=== PATIENT | female | born 1955 | race Caucasian/White ===

== ENCOUNTER 2017-07-06 05:25 | Inpatient (IN) | payer OTHER, SELFPAY ==
[2017-06-23 08:10] VITALS: BP 164/93; PULSE 76; RESP 16; TEMP 37.5; O2SAT 94; BMI 30.2
[2017-06-23 09:07] LABS: Hematocrit 44.6 % (37-47); Hemoglobin 14.5 g/dl (12.0-15.0); Mean Corp Hgb Conc 32.5 g/gl (32-36); Mean Corpuscular Hgb 31.1 pg (27.0-32.0); Mean Corpuscular Volume 95.7 fL (81-99); Mean Platelet Vol. 10.7 fl (6.2-12.0); Platelet Count 209 K/mm3 (150-450); RBC Distribution Width CV 12.7 % (11.6-14.6); RBC Distribution Width SD 43.4 fl (35.1-43.9); Red Blood Count 4.66 M/mm3 (4.2-5.4); White Blood Count 4.9 K/mm3 (4.4-11.0)
[2017-06-23 09:08] LABS: Scan Indicated on CBC? Y/N NO
[2017-06-23 09:27] LABS: Anion Gap 5 (5-15); BUN 15 mg/dL (7-18); BUN/Creat Ratio 27.7 RATIO (10-20); Calcium,Total 8.8 mg/dL (8.5-10.1); Chloride 108 mmol/L (98-107); Creatinine, Serum 0.54 mg/dL (0.55-1.02); EST Glomerular Filtration Rate 122 mL/min (>60); Est Glom Filt Rate - Afr Amer 148 mL/min (>60); Estimated Creatinine Clearance 88.72 ml/min; Glucose 95 mg/dL (70-110); Potassium 4.1 mmol/L (3.5-5.1); Sodium Level 142 mmol/L (136-145)
--- NOTE | 2017-07-02 13:40 | CASEMGMT ---
Addendum entered by Terra Paniagua 07/02/17 13:44: Patient returned call. SOULEYMANE ANGUIANO spoke with patient regarding discharge needs after upcoming surgery. Patient states that she has a cane and raised toilet seat and would need a walker. Patient states she has no preference for [employer] and is agreeable to use [employer]. Patient states that she is setup with [facility] for outpatient therapy and that her boyfriend will be providing transportation. SOULEYMANE ANGUIANO will follow up with patient after surgery and will assist with discharge needs. Disposition Plan: Home with outpatient therapy. SOULEYMANE ANGUIANO to assist with obtaining walker. Original Note: SOULEYMANE ANGUIANO called to discuss discharge needs after patient's upcoming surgery. No answer, voicemail left requesting call back with contact information left. SOULEYMANE ANGUIANO will follow-up after surgery to discuss discharge needs.
[2017-07-06] VITALS (14 sets, daily range): BP systolic 98–151; BP diastolic 58–83; PULSE 59–79; RESP 16–18; TEMP 35.9–36.7; O2SAT 93–100; BMI 30.2
[2017-07-06] MEDS: Celecoxib 200 MG Capsule 400 MG PO (05:55)
[2017-07-06] MEDS: Acetaminophen 500 MG Tablet 1000 MG PO ×2 (05:55→21:43)
[2017-07-06] MEDS: oxyCODONE HCl Cr 10 MG Tablet PO (05:56)
[2017-07-06] MEDS: Lactated Ringers 1,000 ML 999 ML IV (06:40)
--- NOTE | 2017-07-06 07:24 | PCM.OPRPT ---
Report of Operation Date of Procedure: 07/06/17 Pre-Operative Diagnosis: severe end stage osteoarthritis right knee. osteoarthritis left knee Post-Operative Diagnosis: Severe end-stage osteoarthritis right knee. Osteoarthritis left knee Surgery/Procedure Performed:: 1: Total knee arthroplasty right knee. 2: Intra-articular cortisone injection left knee Description of Surgical Findings:: Varus alignment, eburnation of bone, periarticular osteophytes consistent with tricompartmental osteoarthritis natural resources instructor: Tobi Silva Type of Anesthesia:: Spinal Anesthesiologist: Gage Woods Special Medications: TXA Specimen's removed: bone and soft tissue Estimated Blood Loss (mL): 100 Fluids Replaced: see anesthesia report Description of Procedure: Implants: Cathie triathlon size 2 CR femur, size 2 tibia, 32 x 9 mm patella all cemented with Simplex. 9 mm CR articulating surface Indications: Patient has severe end-stage osteoarthritis diagnosed via x-rays in the knee. They have failed all forms of conservative measures including activity modification, injections, anti-inflammatories, use of assistive device. The patient has pain that affects on a daily basis and prevents him from doing things that they enjoyed. They have elected to undergo the above procedure. The risks of the procedure were discussed at length and their questions were answered. Procedure description: The patient was greeted in the preoperative area. The right knee was then marked with a surgical marker. Patient was then taken to or Suite 2. They were administered a dose of antibiotics as well as tranexamic acid. Once adequate anesthesia was obtained and airway was secured to placed in supine position on the operating room table. A well-padded tourniquet was placed on the affected extremity. Leg was then prepped and draped in the usual sterile fashion from the knee down. Ioban was used on the skin. Surgical timeout was then performed and confirmed with all present. Six-inch Esmarch was used to examine the limb and tourniquet was then inflated to 250 mmHg. A longitudinal incision was then planned and carried out in the anterior aspect of the knee. The dissection was then carried the length of the incision the extensor mechanism was identified. Standard medial parapatellar arthrotomy was then performed revealing severe eburnation of bone and periarticular osteophytes. There is complete loss of cartilage especially in the medial compartment with varus alignment. Anterior fat pad was removed for visualization purposes and the anterior medial aspect of the tibia was skeletonized for exposure to the knee. The knee was then flexed the patella was inverted. Opening reamer was then used in the femur approximately 1 cm anterior to the attachment of the PCL. The intramedullary valgus wand was then placed in the femur set at 5? of valgus. The distal femoral cutting jig was then applied to the femur with anticipated resection of approximately 8 mm. This was then made with a oscillating saw. The sizing guide was then placed referencing off the posterior condyles and also reference off the epicondylar axis. This was measured and the appropriate size 4-in-1 cutting jig was then applied to the distal femur. Anterior posterior cuts were made followed by the anterior and posterior chamfer cuts. These bony pieces and fragments were removed and placed on the back table. Posterior retractor was then utilized and the tibia was subluxed anteriorly. Intramedullary tibial alignment jig was then applied to the tibia referencing off the medial one third of the tibial tubercle the anterior tibial spine the middle aspect of the tibiotalar joint. Also reference off patient's [place] slope. The tibial cutting jig was then pinned with anticipated resection of 2 mm off of the deficient medial tibial condyle. This cut was made with the oscillating saw. Once this was complete a laminar senior design engineering specialist was utilized in both medial lateral meniscus were removed and a posterior capsular osteophytes were also removed. Posterior capsule release was performed in the posterior capsule as well as the geniculate arteries are treated with the aqua Rajinder. The tibia was incised and the appropriate sized tibial tray was then pinned. The femoral trial was then placed and the knee was trialed. Full flexion-extension were easily achieved. The knee seemed to balance quite nicely. Any remaining osteophytes were removed at this time. Once this was complete the patella was everted and the Shae patella reaming device was then utilized the patella was then placed in the appropriate jig and reamer was then used to remove approximately 9 mm of the undersurface of the patella. A soft tissue remaining was in the way was removed and patella trial was then placed listed maintain excellent tracking using the no thumbs technique. The tibial tray at this point was punched to accommodate the fins of the final implant. At this point cement was mixed on the back table. The trial components were removed and the knee was copiously irrigated. Did use a cocktail of injection for postoperative pain control. The final components were then cemented in the standard fashion and excess cement was removed with cement removal tools and patellar clamp is placed in the patella. As the cement had cured in full extension tourniquet was deflated and hemostasis was perfect with Bovie cautery as well as the aqua Manus. Needle is once again trialed with different size polyethylenes to ensure the full range of motion was achieved as well as excellent balancing ligamentously was achieved. At this point the knee was copious irrigation. Final implant was then inserted locking mechanism was engaged and confirmed to be locked. The arthrotomy was then closed with #1 Vicryl aggravate type fashion interrupted. Subcutaneous tissue was closed with 0 Vicryl and surgical ray were placed in the skin. A occlusive silver impregnated dressing was then applied followed by well-padded sterile dressing secured with an Jeffrey wrap. The patient was taken to the PACU in stable condition. No complications known at this time. Postoperatively we will maintain standard total knee postoperative protocol. The use of the physician health information assistant was integral during this procedure. They assisted with positioning placement of the tourniquet retracting closure and placement of the dressing. The procedure would have been much more difficult without their expertise and assistance The patient's left knee was cleansed with alcohol preparation solution. A 25-gauge needle was then used to inject combination of 4 mL of 0.5% Marcaine with 40 mg of Kenalog using an anterior medial approach. A bandage was placed. Patient tolerated the procedure well. - Complications None known - Admit VTE Documentation VTE Present on Admission: Yes VTE Mechan Device Prophylaxis: SCD's, Thigh High ED Hose VTE Pharm Prophylaxis ordered?: Yes
[2017-07-06] MEDS: Cefazolin 2 GM in 0.9% Normal Saline 100 ML IV (07:25)
--- NOTE | 2017-07-06 07:27 | OP.PCM_ITS ---
Report of Operation Date of Procedure: 07/06/17 Pre-Operative Diagnosis: severe end stage osteoarthritis right knee. osteoarthritis left knee Post-Operative Diagnosis: Severe end-stage osteoarthritis right knee. Osteoarthritis left knee Surgery/Procedure Performed:: 1: Total knee arthroplasty right knee. 2: Intra- articular cortisone injection left knee Description of Surgical Findings:: Varus alignment, eburnation of bone, periarticular osteophytes consistent with tricompartmental osteoarthritis leaf size picker: Tobi Silva Type of Anesthesia:: Spinal Anesthesiologist: Gage Woods Special Medications: TXA Specimen's removed: bone and soft tissue Estimated Blood Loss (mL): 100 Fluids Replaced: see anesthesia report Description of Procedure: Implants: Cathie triathlon size 2 CR femur, size 2 tibia, 32 x 9 mm patella all cemented with Simplex. 9 mm CR articulating surface Indications: Patient has severe end-stage osteoarthritis diagnosed via x-rays in the knee. They have failed all forms of conservative measures including activity modification, injections, anti-inflammatories, use of assistive device. The patient has pain that affects on a daily basis and prevents him from doing things that they enjoyed. They have elected to undergo the above procedure. The risks of the procedure were discussed at length and their questions were answered. Procedure description: The patient was greeted in the preoperative area. The right knee was then marked with a surgical marker. Patient was then taken to or Suite 2. They were administered a dose of antibiotics as well as tranexamic acid. Once adequate anesthesia was obtained and airway was secured to placed in supine position on the operating room table. A well-padded tourniquet was placed on the affected extremity. Leg was then prepped and draped in the usual sterile fashion from the knee down. Ioban was used on the skin. Surgical timeout was then performed and confirmed with all present. Six-inch Esmarch was used to examine the limb and tourniquet was then inflated to 250 mmHg. A longitudinal incision was then planned and carried out in the anterior aspect of the knee. The dissection was then carried the length of the incision the extensor mechanism was identified. Standard medial parapatellar arthrotomy was then performed revealing severe eburnation of bone and periarticular osteophytes. There is complete loss of cartilage especially in the medial compartment with varus alignment. Anterior fat pad was removed for visualization purposes and the anterior medial aspect of the tibia was skeletonized for exposure to the knee. The knee was then flexed the patella was inverted. Opening reamer was then used in the femur approximately 1 cm anterior to the attachment of the PCL. The intramedullary valgus wand was then placed in the femur set at 5? of valgus. The distal femoral cutting jig was then applied to the femur with anticipated resection of approximately 8 mm. This was then made with a oscillating saw. The sizing guide was then placed referencing off the posterior condyles and also reference off the epicondylar axis. This was measured and the appropriate size 4-in-1 cutting jig was then applied to the distal femur. Anterior posterior cuts were made followed by the anterior and posterior chamfer cuts. These bony pieces and fragments were removed and placed on the back table. Posterior retractor was then utilized and the tibia was subluxed anteriorly. Intramedullary tibial alignment jig was then applied to the tibia referencing off the medial one third of the tibial tubercle the anterior tibial spine the middle aspect of the tibiotalar joint. Also reference off patient's nikolai slope. The tibial cutting jig was then pinned with anticipated resection of 2 mm off of the deficient medial tibial condyle. This cut was made with the oscillating saw. Once this was complete a laminar test car driver was utilized in both medial lateral meniscus were removed and a posterior capsular osteophytes were also removed. Posterior capsule release was performed in the posterior capsule as well as the geniculate arteries are treated with the aqua Rajinder. The tibia was incised and the appropriate sized tibial tray was then pinned. The femoral trial was then placed and the knee was trialed. Full flexion-extension were easily achieved. The knee seemed to balance quite nicely. Any remaining osteophytes were removed at this time. Once this was complete the patella was everted and the Shae patella reaming device was then utilized the patella was then placed in the appropriate jig and reamer was then used to remove approximately 9 mm of the undersurface of the patella. A soft tissue remaining was in the way was removed and patella trial was then placed listed maintain excellent tracking using the no thumbs technique. The tibial tray at this point was punched to accommodate the fins of the final implant. At this point cement was mixed on the back table. The trial components were removed and the knee was copiously irrigated. Did use a cocktail of injection for postoperative pain control. The final components were then cemented in the standard fashion and excess cement was removed with cement removal tools and patellar clamp is placed in the patella. As the cement had cured in full extension tourniquet was deflated and hemostasis was perfect with Bovie cautery as well as the aqua Manus. Needle is once again trialed with different size polyethylenes to ensure the full range of motion was achieved as well as excellent balancing ligamentously was achieved. At this point the knee was copious irrigation. Final implant was then inserted locking mechanism was engaged and confirmed to be locked. The arthrotomy was then closed with #1 Vicryl aggravate type fashion interrupted. Subcutaneous tissue was closed with 0 Vicryl and surgical ray were placed in the skin. A occlusive silver impregnated dressing was then applied followed by well-padded sterile dressing secured with an Jeffrey wrap. The patient was taken to the PACU in stable condition. No complications known at this time. Postoperatively we will maintain standard total knee postoperative protocol. The use of the physician ophthalmic surgical assistant was integral during this procedure. They assisted with positioning placement of the tourniquet retracting closure and placement of the dressing. The procedure would have been much more difficult without their expertise and assistance The patient's left knee was cleansed with alcohol preparation solution. A 25- gauge needle was then used to inject combination of 4 mL of 0.5% Marcaine with 40 mg of Kenalog using an anterior medial approach. A bandage was placed. Patient tolerated the procedure well. - Complications None known - Admit VTE Documentation VTE Present on Admission: Yes VTE Mechan Device Prophylaxis: SCD's, Thigh High ED Hose VTE Pharm Prophylaxis ordered?: Yes
[2017-07-06] MEDS: Triamcinolone Acetonide 40 MG/ML Vial (07:34)
[2017-07-06] MEDS: Bupivacaine Mpf 0.5% 30 ML VIAL (07:34)
--- NOTE | 2017-07-06 08:40 | RAD_ITS ---
STUDY: X-RAY - RIGHT KNEE REASON FOR EXAM: Female, 61 years old. Postop total knee replacement TECHNIQUE: 2 view(s) of the knee. COMPARISON: None. FINDINGS: The patient is status post total knee replacement. The orthopedic hardware is intact. There is air within the joint and subcutaneous soft tissues consistent with recent surgery. Surgical ray project along the anterior knee. RAD/Knee 1 or 2 Views IMPRESSION: Postoperative changes of recent total knee arthroplasty. Electronically Signed: Javi Mcfarland DO at 12:52 EST Tel , Service support ,
[2017-07-06] MEDS: Ondansetron 4 MG/2 ML Vial IV (12:03)
[2017-07-06] MEDS: 0.9% NaCl Peripheral Flush Adult/Peds IV ×2 (12:04→14:23)
[2017-07-06] MEDS: Lactated Ringers 1,000 ML 125 ML IV ×2 (12:50→21:41)
--- NOTE | 2017-07-06 13:45 | CASEMGMT ---
Addendum entered by Terra Paniagua 07/06/17 13:57: SOULEYMANE ANGUIANO to obtain script for walker and assist with setup. Original Note: SOULEYMANE ANGUIANO Face to Face with patient for initial transition planning/care coordination assessment. SOULEYMANE ANGUIANO introduced self and role at [facility]. Patient lying in bed, alert and oriented. Patient willing to participate in assessment and is able to answer all questions appropriately. Care providers, pharmacy, and demographics verified. See link attached. Patient wishes to discharge home with outpatient therapy established with [facility]. Patient states her boyfriend will be providing transportation. Patient states she has no further needs or concerns at this time. CM to follow for discharge planning needs that may arise. Disposition Plan: Patient to discharge home with outpatient therapy, family support, and follow-up plans in place.
[2017-07-06] MEDS: Ketorolac 15 MG/ML Vial IV (14:23)
[2017-07-06] MEDS: Cefazolin 1 GM/50 ML BAG IV (15:54)
[2017-07-06] MEDS: Aspirin 325 MG Tablet PO (19:47)
[2017-07-06] MEDS: Senna/Docusate Sodium 1 Tablet 2 TABLET PO (21:41)
[2017-07-07] MEDS: Cefazolin 1 GM/50 ML BAG IV (00:01)
[2017-07-07 03:00] VITALS: BP 123/68; PULSE 59; RESP 16; TEMP 36.5; O2SAT 94
[2017-07-07] MEDS: oxyCODONE 5 MG Tablet PO ×2 (03:13→07:59)
[2017-07-07] MEDS: Acetaminophen 500 MG Tablet 1000 MG PO ×3 (06:02→21:22)
[2017-07-07] MEDS: Aspirin 325 MG Tablet PO ×2 (07:54→17:07)
[2017-07-07] MEDS: Senna/Docusate Sodium 1 Tablet 2 TABLET PO ×2 (08:00→21:23)
[2017-07-07 08:14] VITALS: BP 122/67; PULSE 70; RESP 18; TEMP 36.9; O2SAT 96
--- NOTE | 2017-07-07 09:16 | PCA ---
PT IN THERAPY
--- NOTE | 2017-07-07 09:53 | PCM.PN.ORT ---
Subjective: Pain controlled. Having some nausea. Doing well overall. Objective: dressing intact. NVI, no calf pain. ankle strength normal - Physical Exam General: Alert, Oriented x3, Cooperative Vital Signs Temp Pulse Resp BP Pulse Ox 98.5 F 70 18 122/67 H 96 07/07/17 08:14 07/07/17 08:14 07/07/17 08:14 07/07/17 08:14 07/07/17 08:14 Oxygen Delivery Method Room Air Weight: 165 lb Body Mass Index (BMI) 30.2 Intake and Output for Last 24 Hours 07/05/17 07/06/17 07/07/17 23:59 23:59 23:59 Intake Total 2939 / 2939 1471 / 1471 Output Total 900 / 900 2200 / 2200 Balance 2039 / 2039 -729 / -729 Assessment/Plan POD#1 right TKA continue with anticoagulation, pain control and PT. Anticipate discharge home tomorrow.
[2017-07-07] MEDS: Ondansetron 4 MG/2 ML Vial IV (09:55)
[2017-07-07] MEDS: Ketorolac 15 MG/ML Vial IV (13:50)
[2017-07-07 14:15] VITALS: BP 147/82; PULSE 67; RESP 18; TEMP 37.2; O2SAT 94
[2017-07-07 21:09] VITALS: BP 139/69; PULSE 77; RESP 18; TEMP 37.1; O2SAT 95
[2017-07-08 03:55] VITALS: BP 148/80; PULSE 75; RESP 14; TEMP 36.9; O2SAT 91
[2017-07-08] MEDS: oxyCODONE 5 MG Tablet PO (03:55)
[2017-07-08] MEDS: Acetaminophen 500 MG Tablet 1000 MG PO ×2 (06:43→14:06)
[2017-07-08] MEDS: Ondansetron 4 MG/2 ML Vial IV (06:57)
[2017-07-08] MEDS: 0.9% NaCl Peripheral Flush Adult/Peds IV (06:58)
[2017-07-08] MEDS: Aspirin 325 MG Tablet PO (10:32)
[2017-07-08] MEDS: Senna/Docusate Sodium 1 Tablet 2 TABLET PO (10:33)
--- NOTE | 2017-07-08 11:28 | CASEMGMT ---
RN SILVIO followed up with patient to verify if [employer] delivered FWW. Patient stated that FWW was deliver and is in patient's room. Patient voiced no further needs at this time. RN SILVIO will continue to follow this patient and plan for safe discharge.
--- NOTE | 2017-07-08 13:05 | PN.ORTHO_ITS ---
Subjective: Patient sitting up in bed, pain well-managed, no other complaints. Patient ready for discharge home. Objective: Dressing clean dry intact, vital signs labs within normal limits. Patient is afebrile neurovascular intact. Negative signs and symptoms of DVT. - Physical Exam General: Alert, Oriented x3, Cooperative HEENT: PERRLA Oral: Moist Mucosa Neurological: Cranial nerves II-XII grossly intact Psych/Mental Status: Normal Affect, Alert and oriented to time, place, person, mood and affect Vital Signs Temp Pulse Resp BP Pulse Ox 98.5 F 75 14 148/80 H 91 07/08/17 03:55 07/08/17 03:55 07/08/17 03:55 07/08/17 03:55 07/08/17 03:55 Oxygen Delivery Method Room Air Weight: 74.843 kg Body Mass Index (BMI) 30.2 Intake and Output for Last 24 Hours 07/06/17 07/07/17 07/08/17 23:59 23:59 23:59 Intake Total 2939 / 2939 2311 / 2311 560 / 560 Output Total 900 / 900 2760 / 2760 1000 / 1000 Balance 2038 / 2038 -449 / -449 -440 / -440 Assessment/Plan Status post right total knee Plan 1. Continue all pain medications as prescribed 2. Continue physical therapy outpatient at [facility] 3. Aspirin 325 mg 1 3. Aspirin 325 mg 1 p.o. every 12 hours ?30 days for postop DVT prophylaxis 4. Follow-up as scheduled Dr. Saunders 5. Discharge home today
--- NOTE | 2017-07-08 13:12 | PCM.DC.TKR ---
Discharge Diet: No Restrictions Discharge Activity: May Not Drive, May Shower, Use Walker May shower in (days): 1 Ice area for (Minutes): 20 - each hour while awake. Weight Bearing Status: Weight bearing as tolerated Elevate: Operative Extremity Additional Activity Instructions:: Wear elastic stockings for 2 weeks after your surgery. Call your doctor if your incision/area has: Continuous Slow Oozing, Sudden Increased Bleeding, Increased Pain/ Swelling, Increased Redness, Foul Smelling Discharge Call your doctor if you observe: Fever of 101 or Higher, Coldness, Increased Pain - in extremity, Numbness or Tingling, Change in Color, Calf discomfort, Uncontrolled pain Change Dressing in (Days):: 0 - and daily as needed. Remove Dressing in (days):: 7 Cleanse incision/area with: Soap & Water Allergies/Adverse Reactions: Allergies No Known Allergies Allergy (Verified 05/23/15 09:27) Medications to take at Discharge Apr Lotion 1 TOPICAL DAILY 06/23/17 Acetaminophen [Tylenol] 1,000 mg PO Q8 #90 tab 07/08/17 Aspirin 325 mg PO BIDCM #60 tab 07/08/17 MorphINE [Ms Contin] 15 mg PO BID #60 tab 07/08/17 Oxycodone [Oxyir] 5 - 10 mg PO Q4H PRN PRN #60 tab 07/08/17 The following prescriptions were given: Oxycodone [Oxyir] 5 - 10 mg PO Q4H PRN PRN #60 tab PRN Reason: Mod-Severe Pain (4-10/10) Acetaminophen [Tylenol] 1,000 mg PO Q8 #90 tab Aspirin 325 mg PO BIDCM #60 tab MorphINE [Ms Contin] 15 mg PO BID #60 tab Primary Care Physician: Faraz Garibay MD [Primary Care Provider] - Please Follow Up With: Navdeep Saunders DO When: as scheduled (see pink sheet)
[2017-07-08 13:13] VITALS: BP 152/79; PULSE 91; RESP 18; TEMP 36.8; O2SAT 97
[2017-07-08 13:38] VITALS: BP 140/75; PULSE 80; RESP 16; TEMP 36.9; O2SAT 90
== END 2017-07-08 15:01 | disposition home or self-care (01) | DRG 470 ==
LOC: ACINP 05:28 → MS3 08:16
PROVIDERS: Admitting Provider Orthopaedic Surgery; Family Provider Family Medicine; PCP Family Medicine; Visit Provider Orthopaedic Surgery
PROC: 0SRC0J9 Replacement of Right Knee Joint with Synthetic Substitute, Cemented, Open Approach (ICD-10-PCS; CPT 27447; principal; 2017-07-06 06:50)
DX: M17.0 Bilateral primary osteoarthritis of knee (principal); I10 Essential (primary) hypertension
CPT/HCPCS: 73560; 80048; 85027; 87081; 97110; 97116; 97162; 97166; 97530; 97535; J7120; A4216; J2405

== ENCOUNTER 2018-01-13 10:00 | Outpatient (RCR) | payer OTHER, SELFPAY ==
--- NOTE | 2017-12-31 15:31 | HP.PTEVAL ---
Patient's Visit Information LUCIAN SMITH is a 62 year old F referred to Physical Therapy by Navdeep Saunders DO with a diagnosis of unilateral primary OA left,right artificial knee. Date of Evaluation: 12/31/17 Physical Therapist: Kole Maharaj PT, - Visit Plan Frequency: 1x/Week Duration: 2 Weeks Plan: Aquatic PT ROM/STRENGTH QUADS/HAMS ,FLEXABLITY - Subjective Subjective: This 62 y/o female [facility] with left OA knee and right TKR on 2017. Patient has had 17 session of PT following surgery . Patient continues to have problems with extended walking and standing. Patient also has pain at night . Patient has difficulty with minimal knee bends.. Patient denies parathesia/tingling . Impairments with pain and function impais QOL. Patient has LEFT knee pain and plans to undergo s/p TKR next year.Patient has to ascend/descend one step. SOCAIL: single. VOCATION: owns [employer] - Pain Right Knee Pain Intensity (Out of 10): 6 Pain Intensity Range: 10 Left Knee Pain Intensity (Out of 10): 6 Pain Intensity Range: 10 - Objective POSTURE: mild foward posture. NEURO: denies parathesia/tingling,intact. EDEMA: mild right. GAIT: ambulates with normal glory mild decrease stance time. AROM: right knee supine flexion 0-115 ,left supine flexion 0-125 degrees. MMT: quads/hams 4/5,hip flexion/abd 4-/5, ankle 4/5. FLEXABLITY: hams WFL. STAIRS: ascend/descend 12 steps one step at a tinme - Goals Goal 1:: Independant with aquatics PT Goal Time Frame: 2 Weeks Goal 2:: Patients decrease pain knee 50% or greater to imprve function and gait Goal Time Frame: 2 Weeks Goal 3:: Patient improve LEFS BY 10-15 points to improve QOL. Goal Time Frame: 2 Weeks Goal 4:: Patient to improve ADL'S and function with less pain Goal Time Frame: 2 Weeks - Rehabilitation Potential Physical Therapy Diagnosis: This patient had right TKR with impairments with pain and stairs along with walking ,patient plans to undergo left TKR next year . Rehabilitation Potential: Good - Anticipated Interventions Patient/Client Instruction: Educate patient on: Condition, Plan of Care For the Purpose of:: To decrease pain, To increase ROM, To improve muscle performance and motor function, To increase tolerance to activity/condition/position, To improve ability of physical actions for home/community/work/leisure, To improve health of tissue, To decrease soft tissue restriction, To increase flexibility/ROM, To improve ability to perform tasks related to life management Therapeutic Exercise to Include: Strength training, Balance training, Postural training, Flexibilty training, In an aquatic setting, Passive ROM, Active ROM For the Purpose of:: To decrease pain, To increase ROM, To improve muscle performance and motor function, To increase tolerance to activity/condition/position, To improve health of tissue, To decrease soft tissue restriction, To increase flexibility/ROM, To improve ability to perform tasks related to life management Thank you for the opportunity to evaluate your patient. For Medicare and Medicare HMO plans, please review the plan of care and approve it. It will need to be FAXED BACK to us at [phone] for Medicare purposes. Please let me know if there are questions or concerns regarding this plan of care. Physician Signature: Date:
--- NOTE | 2018-01-13 11:26 | HP.PTDCSUM_ITS ---
HP - PT D/C Summary It has been my pleasure to treat LUCIAN SMITH under orders from Navdeep Saunders DO, for the diagnosis of unilateral primary OA left,right artificial knee for a total of 3 visit(s). Discharge Date: 01/13/18 Please see the following information for a summary of their discharge status. - Subjective Subjective: No c/o's after first AT visit. Get early in the morning cramping through BLAT calves about every other day. - Pain Right Knee Pain Intensity (Out of 10): 5 Left Knee Pain Intensity (Out of 10): 2 - Overall Improvement % Improvement: 50 - Objective Objective/Function: Reviewed postural corrections. Encouraged pt to consume half body weight in oz a day of water for hopeful decrease in cramping. Discussion of adding jet massage when feeling stiff and swollen for improved circulation. Cues for eccentric muscle control with descending steps and with heel/toe raises. Implimented paper for progression to I pool program - given her own copy at end of Rx along with this facilities pool paperwork. Able to fill out pool paperwork today. Education and cues for natural hip hinge with neutral spine (and abdominal bracing) as needed functionally for STS and step ups. Some reports of increasing pain with step ups, cues to either decrease to deep water to reduced WBing, slow the activity, rest or stop activity prn. AROM : 0-125 degrees right,left 0-130 degrees. MMT: quads/hams 4/5,hip flexion 4/5 , ankle 4/5. GAIT: normal glory - Goals Goal 1:: Independant with aquatics PT Goal Progress: Goal Met Goal 2:: Patients decrease pain knee 50% or greater to imprve function and gait Goal Progress: Progressing Goal 3:: Patient improve LEFS BY 10-15 points to improve QOL. Goal Progress: Progressing Goal 4:: Patient to improve ADL'S and function with less pain Goal Progress: Progressing - Plan Plan: d/c to I pool program. - D/C Information Discharge Comments: water ex's on own If there are questions or concerns regarding this patient's physical therapy, please feel free to call me at [phone]. Thank you for the referral of this patient. Sincerely, Kole Maharaj, PT,
== END 2018-01-13 19:00 | disposition home or self-care (01) ==
LOC: PT 10:00
PROVIDERS: Family Provider Family Medicine; PCP Family Medicine; Visit Provider Orthopaedic Surgery
DX: M17.12 Unilateral primary osteoarthritis, left knee (principal); Z96.651 Presence of right artificial knee joint
CPT/HCPCS: 97113; 97162; 97530

== ENCOUNTER → 2018-10-13 | Outpatient (CLI) | payer OTHER, SELFPAY | END | disposition home or self-care (01) | LOC: BFHLAB 09:28 | PROVIDERS: Family Provider Family Medicine; PCP Family Medicine; Visit Provider Family Medicine | DX: R39.15 Urgency of urination (principal) | CPT/HCPCS: 87086; 87088 ==

== ENCOUNTER → 2018-10-28 | Outpatient (CLI) | payer OTHER, SELFPAY ==
[2018-10-28 12:15] LABS: Absolute Lymphocyte Count 1.26 X10^3/ul (0.83-4.51); Absolute Neutrophil Count 2.8 X10^3/uL (2.0-7.7); Basophil# 0.03 X10^3/uL; Basophil% 0.7 % (0-1); Eosinophil# 0.17 X10^3/uL; Eosinophils% 3.7 % (0-5); Lymphocyte # 1.26 X10^3/ul (4.0); Lymphocyte % 27.4 % (19-41); Mean Corp Hgb Conc 33.3 g/gl (32-36); Mean Corpuscular Hgb 31.1 pg (27.0-32.0); Mean Corpuscular Volume 93.4 fL (81-99); Mean Platelet Vol. 11.4 fl (6.2-12.0); Monocyte# 0.31 X10^3/uL; Monocyte% 6.7 % (0-10); Neutrophil # 2.82 X10^3/uL (2.7-7.7); Neutrophil % 61.3 % (47-70); Platelet Count 217 K/mm3 (150-450); RBC Distribution Width CV 12.5 % (11.6-14.6); RBC Distribution Width SD 41.9 fl (35.1-43.9); Red Blood Count 4.82 M/mm3 (4.2-5.4); White Blood Count 4.6 K/mm3 (4.4-11.0)
[2018-10-28 12:16] LABS: POSITIVE COUNT NO; POSITIVE DIFFERENTIAL NO; POSITIVE MORPHOLOGY NO
[2018-10-28 16:27] LABS: AST(SGOT) 27 U/L (15-37); Alanine Aminotransfer ALT/SGPT 41 U/L (13-56); Albumin, Serum 3.8 g/dL (3.2-5.0); Alkaline Phosphatase 92 U/L (45-117); Anion Gap 8 (5-15); BUN 9 mg/dL (7-18); BUN/Creat Ratio 14.8 RATIO (10-20); Calcium,Total 9.3 mg/dL (8.5-10.1); Chloride 107 mmol/L (98-107); Creatinine, Serum 0.61 mg/dL (0.55-1.02); EST Glomerular Filtration Rate 107 mL/min (>60); Est Glom Filt Rate - Afr Amer 129 mL/min (>60); Globulin 3.7 g/dL (2.2-4.2); Glucose 101 mg/dL (74-106); Potassium 3.4 mmol/L (3.5-5.1); Protein, Total 7.5 g/dL (6.4-8.2); Sodium Level 144 mmol/L (136-145)
== END | disposition home or self-care (01) ==
LOC: BFHLAB 10:16
PROVIDERS: Family Provider Family Medicine; PCP Family Medicine; Visit Provider Family Medicine
DX: R10.9 Unspecified abdominal pain (principal)
CPT/HCPCS: 36415; 80053; 85025

== ENCOUNTER 2018-11-23 08:46 | Day surgery (SDC) | payer OTHER, SELFPAY ==
[2018-11-11 09:34] VITALS: BMI 30.2
--- NOTE | 2018-11-11 09:34 | HP_ITS ---
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 Is patient in pain?: No Allergies No Known Allergies Allergy (Verified 11/11/18 09:31) acetaminophen 1,000 mg (2 x 500 mg) PO Q8 [Apr Lotion 1 TOPICAL DAILY] aspirin 325 mg PO BIDCM morphine ER 15 mg PO BID omeprazole 20 mg PO DAILY oxycodone 5 - 10 mg (1 - 2 x 5 mg) PO Q4H PRN PRN PFSH Medical History Abdominal pain (Acute) Acid reflux (Acute) Anxiety (Acute) Arthritis (Acute) History of back problems (Acute) Nausea (Acute) Sleep apnea (Acute) Surgical History History of hysterectomy (Acute) History of total right knee replacement (Acute) Family History Brother Asthma Colon cancer Daughter Asthma Mother Arthritis CVA (cerebral vascular accident) Father Arthritis Colon cancer Sister Breast cancer Hypertension Grandmother Cancer skin cancer Aunt Cancer skin cancer Social History Smoking Status: Never smoker alcohol intake: current alcohol intake frequency: 0-2 drinks per day details: 2-3 white claws per day substance use type: does not use HPI HPI HPI: LUCIAN SMITH, is a 63 F who presents to the office today for HPI HPI Surgical H&P: Yes HPI: LUCIAN SMITH, is a 63 F who presents to the office today for abdominal pain. Patient notes that for the last month or so she has been having nausea and lower abdominal pain after eating. She says this is because her stop eating. She says the nausea is very extreme as well as the abdominal pain. She is a is pain in the left lower quadrant. She also seems to be constipated as she says she only has a bowel movement every 3 days and they are hard. ROS General General: Yes weight change and fatigue; no appetite, colon cancer, breast cancer or weakness HEENT HEENT: No difficulty swallowing, eye injury, eye surgery, swollen glands or hoarseness Endo Endocrine: No thyroid disease, diabetes mellitus, thyroid cancer, Hair loss, heat intolerance or cold intolerance Skin Skin: No rash or changing moles Breast Breast: No left breast lump, right breast lump, nipple discharge, breast pain, abnormal mammogram, abnormal US or breast enlargement Musc Musculoskeletal: Yes back problems and arthritis; no rheumatoid arthritis, gout or joint pain Cardio Cardiovascular: No murmur, pacemaker, heart disease, atrial fibrillation, high blood pressure, heart attack, heart stent, palpitations, shortness of breat with exertion or chest pain Psych Psychiatric: Yes anxiety; no depression or hearing voices Resp Respiratory: No shortness of breath, Yes sleep apnea, No cough, No COPD, No asthma, No emphysema, No wheezing Gastro Gastrointestinal: Yes abdominal pain, Yes nausea or vomiting, No diarrhea, No constipation, No blood in stool, Yes acid reflux, No hemorrhoids, No ulcers, No gallbladder problem, No black,tarry stools Jared Hematologic: No blood thinners, No blood disorders, No bleeding, No anemia, No blood clots Neuro Neurologic: No system reviewed and no additional complaints, except as docu, No as per HPI, No abnormal walking, No abnormal hearing, No abnormal movements, No abnormal speech, No behavioral changes, No burning sensations, No confusion, No seizure-like activity, No unsteadiness, No dizziness, No localized weakness, No frequent falls, No headache(s), No lack of coordination, No loss of vision, No memory loss, No numbness, No other visual disturbances, No radiating pain, No restless legs, No sensory deficit, No fainting, No tingling, No tremor(s), No weakness, No other Exam Const General: cooperative Orientation: alert, oriented x3 Chest Breast Palpation: No nipple discharge Resp Effort & Inspection: normal respiratory effort Auscultation: clear to auscultation bilaterally Cardio Rate: regular rate Rhythm: regular rhythm Heart Sounds: no murmurs GI Inspection: non-distended Palpation: soft, nontender Assessment & Plan Problems 1. Family history of colon cancer Z80.0 2. LLQ pain R10.32 3. Constipation, unspecified constipation type K59.00 Plan Patient is having nausea after eating as well as left lower quadrant pain. I will start her on a PPI to see if this helps with the nausea. If this does not work I would recommend ultrasound of the gallbladder. Patient also notes left lower quadrant pain after eating. She has constipation and a family history of colon cancer in her brother and father. Her brother was in his 30s and her father was in his 70s when they were diagnosed. She had her last colonoscopy in 2014 which was normal. Her PCP would like repeat colonoscopy due to the pain and constipation. Johan Azevedo MD Pager: [facility] [address] [place] [address], [address] [place] [address] Office: Medications Discontinued: omeprazole Discontinued Reason: Order Completed 20 mg PO DAILY 60 tabs 0RF oxycodone Discontinued Reason: Order Completed 5 - 10 mg (1 - 2 x 5 mg) PO Q4H PRN PRN 60 tabs 0RF Mod-Severe Pain (4-10/10) G89.18 acetaminophen Discontinued Reason: Order Completed 1,000 mg (2 x 500 mg) PO Q8 90 tabs 0RF aspirin Discontinued Reason: Order Completed 325 mg PO BIDCM 60 tabs 0RF morphine ER Discontinued Reason: Order Completed 15 mg PO BID 60 tabs 0RF G89.18 Coding Level of Care Code Off vis,new,level 3 Diagnoses Family history of colon cancer Z80.0 LLQ pain R10.32 Constipation, unspecified constipation type K59.00 ??Constipation type: unspecified constipation type 11/11/18 0934 <Electronically signed by Johan Azevedo MD> Date Johan Azevedo MD I have re-examined the patient. There are no clinical changes since date of exam.
--- NOTE | 2018-11-23 | COLBX_PTH ---
PATIENT: LUCIAN SMITH LOC: EN U#:[id number] AGE/SX: 63/F ROOM: RE11/23/[address]: Dr. Johan Azevedo MD : 1955 BED: DIS: 11/23/2018 SPEC #: [id number] RECD: 11/23/18 13:56 STATUS: CY SHAYNA #: [id number] NHUNG: 11/23/18 00:[address]: Johan Azevedo DEPT: SURGICAL PATHOLOGY RECD BY: Sae Cabello ENTERED: 11/23/18 13:56 SP TYPE: COLON BX OTHR DR: Dr. Faraz Garibay MD Tissues: COLON BIOPSY Procedures: Surgery Specimen Level IV HEADER OPERATION: Colonoscopy (MAC) PRE-OP DIAGNOSIS: Family history colon CA, LLQ pain, constipation TISSUE SUBMITTED: Sigmoid colon polyp 25 cm MICROSCOPIC DIAGNOSIS Sigmoid colon polyp at 25 cm, biopsy: A fragment of colonic mucosa, no pathologic diagnosis. SJ:rachana 11/24/18 MICROSCOPIC DESCRIPTION Slides are reviewed. GROSS DESCRIPTION Received in fixative is one container labeled with the patient's name and designated sigmoid polyp 25 cm. The specimen consists of one irregular fragment of light grayson soft tissue that measures 0.6 x 0.3 x 0.1 cm. The specimen is totally submitted in one cassette. / CLIFTON:rachana 11/23/18 TC:4 CPT: 91853
[2018-11-23 09:01] VITALS: BP 165/85; PULSE 69; RESP 16; TEMP 36.6; O2SAT 98; BMI 29.2
[2018-11-23 11:35] VITALS: BP 116/82; BP 165/85; PULSE 70; RESP 16; TEMP 36.6; O2SAT 98
--- NOTE | 2018-11-23 11:39 | OP.ENDO_ITS ---
11/23/2018 Faraz Garibay Re : Colonoscopy procedure for Tonie Keen Dear Lani This procedure was performed on Friday, November 23, 2018. My impressions and recommendations are as follows: Impressions : - One polyp in the sigmoid colon, removed with a hot snare. Resected and retrieved. - The examination was otherwise normal on direct and retroflexion views. Recommendations : - Discharge patient to home. - Resume previous diet. - Continue present medications. - Physician's office will call you with pathology results and recommendations for when to repeat colonoscopy. - Repeat colonoscopy date to be determined after pending pathology results are reviewed for surveillance based on pathology results. My findings are described in the full procedure note, which is enclosed. If I can be of further assistance, please feel free to contact me at Doctor phone number(s): , Work: . Sincerely, Johan Azevedo MD 11/23/2018 11:38:51 AM This report has been signed electronically.
[2018-11-23 11:40] VITALS: BP 137/83; BP 165/85; PULSE 67; RESP 16; O2SAT 98
[2018-11-23 11:45] VITALS: BP 143/78; BP 165/85; PULSE 71; RESP 16; O2SAT 100
[2018-11-23 11:50] VITALS: BP 143/91; BP 165/85; PULSE 68; RESP 16; TEMP 36.7; O2SAT 100
[2018-11-23 12:17] VITALS: BP 165/85
== END 2018-11-23 12:17 | disposition home or self-care (01) ==
LOC: EN 08:48 → AC 08:49
PROVIDERS: Family Provider Family Medicine; PCP Family Medicine; Referring Provider Family Medicine; Visit Provider Surgery
PROC: 0DJD8ZZ Inspection of Lower Intestinal Tract, Via Natural or Artificial Opening Endoscopic (ICD-10-PCS; CPT 45378; principal; 2018-11-23 09:55)
DX: K63.5 Polyp of colon (principal); Z80.0 Family history of malignant neoplasm of digestive organs; K59.00 Constipation, unspecified; K21.9 Gastro-esophageal reflux disease without esophagitis; F41.9 Anxiety disorder, unspecified; M19.90 Unspecified osteoarthritis, unspecified site; G47.30 Sleep apnea, unspecified; G25.81 Restless legs syndrome; I10 Essential (primary) hypertension; Z78.0 Asymptomatic menopausal state; Z79.899 Other long term (current) drug therapy
CPT/HCPCS: 45385; 88305; J7120

== ENCOUNTER → 2018-12-29 | Outpatient (CLI) | payer OTHER, SELFPAY ==
[2018-12-29 17:10] LABS: Anion Gap 4 (5-15); BUN 19 mg/dL (7-18); BUN/Creat Ratio 21.4 RATIO (10-20); Calcium,Total 8.8 mg/dL (8.5-10.1); Chloride 105 mmol/L (98-107); Creatinine, Serum 0.89 mg/dL (0.55-1.02); EST Glomerular Filtration Rate 69 mL/min (>60); Est Glom Filt Rate - Afr Amer 83 mL/min (>60); Glucose 95 mg/dL (74-106); Potassium 4.2 mmol/L (3.5-5.1); Sodium Level 138 mmol/L (136-145)
[2018-12-29 17:15] LABS: Absolute Lymphocyte Count 1.44 X10^3/uL (0.83-4.51); Absolute Neutrophil Count 3.9 X10^3/uL (2.0-7.7); Basophil# 0.03 X10^3/uL; Basophil% 0.5 % (0-1); Eosinophil# 0.14 X10^3/uL; Eosinophils% 2.3 % (0-5); Hematocrit 43.1 % (37-47); Hemoglobin 14.5 g/dL (12.0-15.0); Lymphocyte # 1.44 X10^3/ul (4.0); Lymphocyte % 24.2 % (19-41); Mean Corp Hgb Conc 33.6 g/dL (32-36); Mean Corpuscular Hgb 32.4 pg (27.0-32.0); Mean Corpuscular Volume 96.2 fL (81-99); Mean Platelet Vol. 11.2 fl (6.2-12.0); Monocyte# 0.48 X10^3/uL; Monocyte% 8.1 % (0-10); NRBC Flagged by Analyzer 0 % (0-5); Neutrophil # 3.85 X10^3/uL (2.7-7.7); Neutrophil % 64.6 % (47-70); Platelet Count 228 K/mm3 (150-450); RBC Distribution Width CV 12.5 % (11.6-14.6); RBC Distribution Width SD 43.8 fl (35.1-43.9); Red Blood Count 4.48 M/mm3 (4.2-5.4)
== END | disposition home or self-care (01) ==
LOC: BFHLAB 15:58
PROVIDERS: Family Provider Family Medicine; PCP Family Medicine; Visit Provider Family Medicine
DX: Z01.818 Encounter for other preprocedural examination (principal); M21.962 Unspecified acquired deformity of left lower leg
CPT/HCPCS: 36415; 80048; 85025

== ENCOUNTER 2019-02-28 07:13 | Emergency (ER) | payer OTHER, SELFPAY ==
[2019-02-28 07:13] VITALS: BP 209/93; PULSE 64; RESP 17; TEMP 36.3; O2SAT 96; BMI 29.2
[2019-02-28 07:26] VITALS: BP 187/99; PULSE 63; RESP 20; O2SAT 97
--- NOTE | 2019-02-28 07:31 | EKG12_ITS ---
Test Reason : HTN Blood Pressure : / mmHG Vent. Rate : 061 BPM Atrial Rate : 061 BPM P-R Int : 174 ms QRS Dur : 092 ms QT Int : 396 ms P-R-T Axes : 041 011 024 degrees QTc Int : 398 ms Normal sinus rhythm Poor R- wave Progression Confirmed by ARNAUD MCKOY, VLADIMIR ([id number]), food expeditor RERE BRUNO ([id number]) on 03/02/2019 2:16:19 PM Referred By: MITCH Confirmed By:VLADIMIR LARES MD
--- NOTE | 2019-02-28 07:31 | CT_ITS ---
STUDY: CT BRAIN WITHOUT CONTRAST REASON FOR EXAM: Female, 63 years old. HEADACHE,NAUSEA,WEAKNESS RADIATION DOSAGE (If Supplied By Facility): CTDIvol = ( 44.99 ) mGy, DLP = ( 745.49 ) mGycm TECHNIQUE: Transaxial CT imaging of the brain was performed without administration of intravenous contrast material. Individualized dose optimization techniques were used for this CT. COMPARISON: None. FINDINGS: There is cerebral atrophy with widening of the extra-axial spaces and ventricular dilatation. There are areas of decreased attenuation within the white matter tracts of the supratentorial brain, consistent with microvascular disease changes. There is no intracranial hemorrhage. There are no findings of an acute ischemic infarction. Normal soft tissue structures. Normal visualized paranasal sinuses. CT/Brain/Head without Contrast IMPRESSION: Chronic involutional changes of the brain. Electronically Signed: Yajaira Arenas MD at 8:23 EDT Tel , Service support ,
[2019-02-28] MEDS: cloNIDine HCl 0.1 MG Tablet PO (07:43)
[2019-02-28 07:45] VITALS: BP 186/87; PULSE 67; RESP 16; O2SAT 98
--- NOTE | 2019-02-28 07:45 | ED.DCSUM_ITS ---
- ER Visit Summary Date of Service: 02/28/19 Chief Complaint: Hypertension, headache History of Present Illness: The patient is a 63 F who complains of high blood pressure as well as a headache. She was just started on blood pressure medications this past week by her PCP. She was given metoprolol 50 mg daily. She states that she woke up this morning with a frontal headache. Denies any visual changes with this. She did feel little bit nauseous. She admits to taking 2 blood pressure medications yesterday because of the elevated blood pressure. She denies any weakness of any arms or legs. No slurred speech or facial droop. She states that was 220/120 at home. Physical Examination: Vital signs reviewed, blood pressure elevated at 202/96. HEENT exam unremarkable. Heart is regular rate and rhythm without murmurs. Lungs are clear to auscultation. Abdomen is soft and nontender. Extremities reveal no edema. Skin exam normal. Neurologic exam normal. Test Results: CT scan of the head reveals chronic changes. EKG is sinus rhythm with a rate of 61. No ST changes. Emergency Department Course and Treatment: The patient was given 0.1 g of clonidine. Repeat blood pressure an hour later was 120/73. Symptoms are improved. Patient will need to call her doctor to discuss the use of this metoprolol. They may want to change to something different. However, I feel at this time she has nothing emergent going on that she can be discharged to follow-up. Treatment Plan: [] Disposition: Discharge Impression: Hypertension This note was generated with [employer] software. It may contain incorrect words, spelling, and punctuation that were not noted in review of the chart prior to signing ED Disposition - Plan for ED Patient: Referrals: Faraz Garibay MD [Primary Care Provider] -
--- NOTE | 2019-02-28 08:36 | ED.DEP ---
ED Disposition - Plan for ED Patient: Disposition: Home or Assisted Living Instructions: HYPERTENSION, Established Referrals: Faraz Garibay MD [Primary Care Provider] -
[2019-02-28 09:04] VITALS: BP 112/68; BP 123/68; PULSE 63; RESP 12; O2SAT 96
== END 2019-02-28 09:07 | disposition home or self-care (01) ==
PROVIDERS: Emergency Provider Emergency Medicine; Family Provider Family Medicine; PCP Family Medicine
DX: I10 Essential (primary) hypertension (principal); Z79.899 Other long term (current) drug therapy
CPT/HCPCS: 70450; 93005; 99282; A4216

== ENCOUNTER → 2019-06-02 12:53 | Outpatient (CLI) | payer OTHER, SELFPAY | PROVIDERS: Family Provider Family Medicine; PCP Family Medicine; Referring Provider Family Medicine; Visit Provider Family Medicine | DX: J06.9 Acute upper respiratory infection, unspecified (principal) | CPT/HCPCS: 87633 ==

== ENCOUNTER 2019-06-14 09:48 | Day surgery (SDC) | payer OTHER, SELFPAY ==
--- NOTE | 2019-06-06 15:00 | RAD_ITS ---
STUDY: X-RAY CHEST REASON FOR EXAM: Female, 63 years old. preoperative eval, patient states no chest complaints or any history TECHNIQUE: PA and lateral views of the chest. COMPARISON: 04/08/2013. FINDINGS: The lungs are clear and expanded. There is no demonstrated pleural abnormality. Normal size heart. Normal mediastinum and michael. Normal visualized pulmonary arteries. Normal visualized aortic arch and descending thoracic aorta. There are diffuse degenerative changes of the visualized thoracic spine. There is mild degenerative osteoarthritis of the bilateral shoulders. There is no demonstrated abnormality of the visualized soft tissue structures of the upper abdomen. RAD/Chest PA and Lateral IMPRESSION: Normal x-ray examination of the chest for age. Electronically Signed: Priya Oreilly MD at 3:18 EST , Service support ,
[2019-06-06 15:06] LABS: Hematocrit 46.2 % (37-47); Hemoglobin 15.5 g/dL (12.0-15.0); Mean Corp Hgb Conc 33.5 g/dL (32-36); Mean Corpuscular Hgb 32.4 pg (27.0-32.0); Mean Corpuscular Volume 96.7 fL (81-99); Mean Platelet Vol. 10.8 fl (6.2-12.0); Platelet Count 252 K/mm3 (150-450); RBC Distribution Width CV 11.8 % (11.6-14.6); RBC Distribution Width SD 41.9 fl (35.1-43.9); Red Blood Count 4.78 M/mm3 (4.2-5.4); White Blood Count 7.5 K/mm3 (4.4-11.0)
[2019-06-06 15:32] LABS: AST(SGOT) 33 U/L (15-37); Alanine Aminotransfer ALT/SGPT 59 U/L (13-56); Alkaline Phosphatase 89 U/L (45-117); Anion Gap 2 (5-15); BUN 14 mg/dL (7-18); BUN/Creat Ratio 18.6 RATIO (10-20); Bilirubin, Direct 0.09 mg/dL (0.00-0.30); Calcium,Total 8.8 mg/dL (8.5-10.1); Chloride 103 mmol/L (98-107); Creatinine, Serum 0.75 mg/dL (0.55-1.02); EST Glomerular Filtration Rate 83 mL/min (>60); Est Glom Filt Rate - Afr Amer 101 mL/min (>60); Globulin 3.6 g/dL (2.2-4.2); Glucose 87 mg/dL (74-106); Potassium 3.8 mmol/L (3.5-5.1); Protein, Total 7.6 g/dL (6.4-8.2); Sodium Level 139 mmol/L (136-145)
[2019-06-06 16:01] LABS: Prothrombin Time (Protime)PT. 13.2 SECONDS (11.7-14.9)
[2019-06-06 16:02] LABS: Partial Thromboplast Time 33.3 Seconds (24.1-36.2)
[2019-06-14] VITALS (7 sets, daily range): BP systolic 109–138; BP diastolic 61–89; PULSE 65–87; RESP 16; TEMP 36.6–37.1; O2SAT 90–96; BMI 29.9
[2019-06-14] MEDS: Lactated Ringers 1,000 ML 100 ML IV (10:15)
[2019-06-14] MEDS: Cefazolin 1 GM/50 ML BAG IV (11:42)
--- NOTE | 2019-06-14 12:02 | RAD_ITS ---
STUDY: X-RAY - LEFT FOOT CLINICAL: Female, 63 years old. Lapidus bunionectomy, bone graft, osteotomy plantar repair, hammer toe TECHNIQUE: 23 intraoperative view(s) of the foot. COMPARISON: None. FINDINGS: There is demonstrated internal fixation of the first metatarsotarsal articulation with plate and multiple screws. Status post first metatarsal head bunionectomy changes are noted. Orthopedic hardware is seen involving the second PIP joint. A screw is demonstrated in the second metatarsal head. Osseous structures of the visualized left foot appear in normal anatomic alignment. RAD/Foot min 3 Views IMPRESSION: Postoperative changes as detailed above. A total of 312.1 seconds of fluoroscopy time was used. Estimated radiation dose: 5.50 mGy. Electronically Signed: Jamie Clemnete MD at 17:23 EST , Service support ,
[2019-06-14] MEDS: Bupivacaine Mpf 0.5% 30 ML VIAL ×2 (15:00→15:04)
--- NOTE | 2019-06-14 15:46 | DCINST_ITS ---
Discharge Diet: No Restrictions Discharge Activity: May Not Drive, May Not Shower, Use Walker, Use Crutches Weight Bearing Status: No weight bearing Keep extremity elevated above heart level: Left Leg Additional Activity Instructions:: keep dressing clean, dry and intact. do not get dressing wet. If get dressing wet, call office immediately. Ice behind left knee 20 minutes on 20 minutes off every hour while awake. Elevate left foot above level of heart at all times. Take medications as prescribed. No walking/standing on left foot. Use crutches for assistance. Call your doctor if your incision/area has: Sudden Increased Bleeding, Increased Pain/ Swelling Call your doctor if you observe: Fever of 101 or Higher, Coldness, Increased Pain, Shortness of breath, Dizziness, Fainting spells, Increased palpitations (irregular heartbeat), Calf discomfort, Uncontrolled pain Cleanse incision/area with: Keep Dressing Clean & Dry Allergies/Adverse Reactions: Allergies No Known Allergies Allergy (Verified 06/14/19 10:10) Medications to take at Discharge Metoprolol Tartrate [Lopressor (Beta Blayne)] 50 mg PO DAILY 02/28/19 Orders to be completed after discharge: Chest PA and Lateral [RAD] Time Frame: 06/06/19, Facility: [facility], Location: Radiology, [facility] Basic Metabolic Profile (BMP) Time Frame: 06/06/19, Facility: [facility], Location: Laboratory CBC-Complete Blood Cnt No Diff Time Frame: 06/06/19, Facility: [facility], Location: Laboratory Liver Profile Time Frame: 06/06/19, Facility: [facility], Location: Laboratory Partial Thromboplast Time Time Frame: 06/06/19, Facility: [facility], Location: Laboratory Prothrombin Time w/INR Time Frame: 06/06/19, Facility: [facility], Location: Laboratory Primary Care Physician: Faraz Garibay MD [Primary Care Provider] - Test Results: Test results from this visit will be discussed in further detail at your follow- up appointment, if applicable. Please Follow Up With: Jerome Davison DPM When: 1 week
[2019-06-14] MEDS: HYDROcodone Bitartrate/Apap 5/325 Tablet PO (16:42)
--- NOTE | 2019-06-14 20:06 | OP.PCM_ITS ---
Problem List (1) Acquired deformity of left foot Status: Chronic (2) Bunion, left foot Status: Chronic (3) Hammertoe of second toe of left foot Status: Chronic Report of Operation Date of Procedure: 06/14/19 Pre-Operative Diagnosis: 1. Hallux abductovalgus deformity left foot. #2 met primus elevatus left foot. #3 hypermobile first ray left foot. #4 plantar plate rupture second metatarsal phalangeal joint left foot. #5 hammertoe deformity second digit left foot Post-Operative Diagnosis: Same as preoperative Surgery/Procedure Performed:: 1. Fusion of the left foot first tarsometatarsal joint. 2. Application of autologous bone graft left foot. #3 Simona osteotomy with internal fixation second metatarsal left foot. #4 hammertoe correction with arthroplasty of the proximal interphalangeal joint second issue left foot. #5 repair of plantar plate second metatarsal phalangeal joint left foot. Description of Surgical Findings:: Consistent with diagnosis. Reduction of deformity achieved and held with internal fixation. Type of Anesthesia:: General/Regional Anesthesiologist: Josh Krishnamurthy Special Medications: 2 g of Ancef given preoperatively Specimen's removed: None Drains: None Estimated Blood Loss (mL): 75 Description of Procedure: Anesthesia: Is general with an ankle block given to the right ankle consisting of 20 cc of 0.5% Marcaine plain distributed in an ankle block fashion. Hemostasis: Pneumatic calf tourniquet placed at the level of the left calf at 250 mmHg for 120 minutes. Estimated blood loss: 100 mL Materials: Cathie Ho CP plate for the left foot. #2 Cathie 4.1 x 38 mm compression screw. #3 Cathie 3.5 x 10 mm locking screw. #4 Cathie 3.5 x 12 mm locking screw. 5. Cathie 4.0 x 28 mm fully threaded screw. 6. [place] 2.7 x 11 mm snap off screw. 7. EXO toe size 6.5. 8. Cathie Vitoss Injectables: 20 mL of 0.5 Marcaine plain Complications: Patient's bone was significantly soft and fixation was difficult to hold in place. Condition: Stable Indications: This is a 63-year-old female with multiple medical problems has a chief complaint of painful ambulation of her left foot. Patient follows up with me as an outpatient upon clinical and imaging analysis, a significant house abductovalgus deformity was noted along with a plantar plate and second digit hammertoe. Multiple conservative treatments were employed, including physical therapy, inserts, wider shoes, and at home exercises. All of these conservative therapies fail. After multiple discussions were had with the patient, it was determined at this time that surgical intervention to reduce the deformities and hold the deformities in the corrected position with internal fixation would benefit the patient and help her return to activities of daily living. Operative report: Before the patient was brought to the operating room, the risks, benefits, possible outcomes, possible complications of the procedure were discussed with the patient. All the patient questions were answered to her satisfaction and all of her concerns were addressed. No guarantees made as to the outcome of the procedure. The patient understood all aspects of the procedure, and consent was then signed by the patient. Patient was then brought to the operating room placed on the operating table in supine position. After timeout, under general anesthesia, a well-padded pneumatic calf tourniquet was placed to level left calf. Next, 20 mL of 0.5 the Marcaine plain was distributed ankle block fashion to the left ankle. The left foot, ankle, leg were then scrubbed, prepped, draped in the usual sterile manner. Elevation of the left lower extremity was followed by exsanguination via Esmarch and inflation the pneumatic calf tourniquet to 250 mmHg. Attention was then directed to the dorsomedial aspect of the first ray of the left foot. At this time, #15 blade was used to perform an incision starting on the dorsal medial aspect of the midportion of the medial cuneiform extending distally to the dorsal medial aspect of the base of the proximal phalanx of the left hallux. This incision was deepened utilizing sharp and blunt dissection. Care was taken to retract all vital neural and vascular structures. All bleeders were cauterized and ligated as necessary. At this time attention was directed to the first metatarsophalangeal joint left foot. A linear capsulotomy was performed in line with the original skin incision starting the dorsal medial aspect of the first metatarsal head extending distally to the base of the proximal phalanx of the left hallux. The periosteal and capsular structures then reflected medially and laterally thus exposing the first metatarsal of the operative site. At this time a sagittal bone saw was used to resect the medial eminence. This was then passed from the operative site to be used as a bone graft later. Any jagged edges were smoothed down via the bone saw. Attention was then directed to the base of the first metatarsal in the area of the tarsometatarsal joint. Next a #15 blade was used to perform a linear capsulotomy in line with the original skin incision. The periosteal and capsular structures were then reflected medially and laterally thus exposing the first tarsometatarsal joint the operative site. Next the dorsal and medial ligaments were sharply transected. At this time, cartilage was then resected from the base of the first metatarsal and the head of the medial cuneiform. This was then passed from the operative site. Care was taken make sure that all the cartilage was resected from these portions of bone. Once adequate resection was performed, the surgical site was irrigated with copious amounts normal sterile saline. Next, subchondral drilling was performed of the base of the first metatarsal and the head of the medial cuneiform. Next, a bone reduction clamp was used to reduce the first intermetatarsal angle while a varus tilt was placed over the first metatarsal to realign the sesamoid apparatus. Radiograph evaluation was then performed and the first intermetatarsal angle was noted to be significantly reduced from pr eoperative assessment. Furthermore, the sesamoids were noted to be back in a more anatomical position. Next, the bone graft taken from the medial eminence was devoid of all cartilage. Drilling was performed in this bone graft and this was placed in the first tarsometatarsal joint. Furthermore, Cathie Vitoss was placed into this joint as well. This position was held at the first tarsometatarsal joint via temporary fixation. At this time, the [place] Lapidus CP plate was placed over the dorsal medial aspect of the first tarsometatarsal joint of the left foot. Radiograph evaluation was performed to determine exact positioning. Once positioning was obtained, this was held via temporary fixation. At this time, the CP hole plate was reamed appropriately. This plate was then placed from distal to proximal. Once the CP screw was almost fully inserted, all temporary fixation was removed from the first tarsometatarsal joint. Of note during insertion of the CP screw was adequate compression of the first tarsometatarsal joint. Furthermore, no shifting any of the fixation of first tarsometatarsal joint occurred during insertion of the screw. Once the screw was fully inserted, the remaining proximal holes were affixed to the bone via nonlocking and locking screws. At this time, K wire fixation was placed from the plantar medial aspect of the first metatarsal base extending laterally and dorsally to the base of the second metatarsal. Radiograph evaluation was performed to determine this position. Once adequate fishing was performed, the [place] fully threaded screw was placed in standard AO fixation from medial to lateral through the base of the first into the base of the second metatarsal. Once the screw was fully inserted, all temporary fixation was removed including the bone reduction clamp. Radiograph evaluation was then performed and the first intermetatarsal angle was noted to be significantly reduced from preoperative assessment. Furthermore the internal fixation was noted to hold the first metatarsal in the correct the reduced position. The surgical site was then irrigated with copious amounts normal sterile saline. The periosteal and capsular structures were reapproximated coapted utilizing size 0 Vicryl and 2-0 Vicryl. The subcutaneous tissue was reapproximated coapted utilizing 2-0 Vicryl and 3-0 Vicryl. The skin was reapproximated coapted utilizing 3-0 nylon in a simple interrupted and horizontal mattress fashion. At this time the pneumatic calf tourniquet was released and a prompt hyperemic response noted the entirety of the left lower extremity. Attention was then directed to the dorsal aspect of the second metatarsal phalangeal joint of the second digit of the left foot. At this time, a curvilinear incision was made starting on the dorsal aspect of the neck of the second metatarsal extending distally and then linearly through the dorsal aspect of the distal portion of the middle phalanx of the second digit of the left foot. This incision was deepened utilizing sharp and blunt dissection. Care was taken to retract all vital neural and vascular structures. All bleeders were cauterized and ligated as necessary. At this time attention was then directed the second metatarsal phalangeal joint. A linear capsulotomy was performed. The periosteal and capsular structures were then reflected medially and laterally thus exposing the second metatarsophalangeal joint the operative site. At this time the second metatarsal had was freed of its capsular and ligamentous structures. Next, a sagittal bone saw was used to perform the Simona osteotomy starting the dorsal distal aspect of the second metatarsal head extending proximally and plantarly. This osteotomy was placed parallel to the weightbearing surface. Once the osteotomy was performed, immediate retraction of the second metatarsal head was noted. At this time, a [place] 2.0 x 12 mm step-off screw was attempted to be placed as perpendicular to the osteotomy site as possible. Of note insertion of the screw was that the bone was extremely soft and would not hold the screw. . The screw was then removed entirely. A [place] 2.0 x 11 mm step-off screw was placed proximally to this through the osteotomy. The screw was noted to hold the second metatarsal head in the corrected position. At this time, and the overlying cortical bone was resected and passed from the operative site. Dentures then directed the proximal interphalangeal joint of the second digit via the original skin incision. At this time, #15 blade was used to perform a linear incision through the extensor tendon. The extensor tendon was reflected medially and laterally thus exposing the proximal interphalangeal joint the operative site. Next, a #15 blade was used to sharply dissect the proximal differential joint. Next, a sagittal bone saw was used to resect the cartilage of the head of the proximal phalanx and the base of the middle phalanx of the second digit of the left foot. These were then passed from the operative site. Surgical site was irrigated copious muscle normal sterile saline. At this time, the second issue was held via temporary fixation via K wire positioning. Next, the EXO toe was placed over the dorsal aspect of the second proximal phalanx. This was then clamped in adequate position. Radiograph evaluation was then performed. The exited toe implant was noted to hold the second digit in the correct the reduced position. Furthermore, the second metatarsal head was noted to be back into normal anatomical parabola and was held in position via the snap off screw. Surgical site was then irrigated with copious amounts normal sterile saline. The extensor tendon was reapproximated coapted using 3-0 Vicryl. The second metatarsal phalangeal joint capsule was reapproximated coapted using 3-0 Vicryl. The subcutaneous tissue was reapproximated coapted utilizing 3-0 Vicryl and 4-0 Vicryl. The skin was reapproximated coapted utilizing 3-0 nylon and 4-0 nylon in a simple interrupted and horizontal mattress fashion. At this time, the surgical site was dressed with Betadine soaked gauze, and a dry sterile dressing setting of 4 x 4 gauze wrapped with Kerlix. The left foot and ankle were then wrapped with an Jeffrey bandage. At this time, a stockinette was placed over the left lower extremity. Cast padding was wrapped from the metatarsal heads extending proximally to level just distal to the tibial tuberosity. A posterior splint was fashioned to the left lower extremity and was adhered to the left lower extremity utilizing Jeffrey bandages. The patient tolerated anesthesia procedure well and was transported to the PACU with vital signs stable and neurovascular status intact left lower extremity. After period of postoperative monitoring, the patient will be discharged home with written and oral instructions for wound care and follow-up. - Admit VTE Documentation VTE Present on Admission: No
== END 2019-06-14 18:25 | disposition home or self-care (01) ==
LOC: SDC 09:48 → AC 09:49
PROVIDERS: Family Provider Family Medicine; PCP Family Medicine; Referring Provider Podiatrist Foot & Ankle Surgery; Visit Provider Podiatrist Foot & Ankle Surgery
DX: M21.612 Bunion of left foot (principal); M20.42 Other hammer toe(s) (acquired), left foot; M20.12 Hallux valgus (acquired), left foot; M21.42 Flat foot [pes planus] (acquired), left foot; M21.962 Unspecified acquired deformity of left lower leg; M67.02 Short Achilles tendon (acquired), left ankle; Z96.652 Presence of left artificial knee joint; M19.90 Unspecified osteoarthritis, unspecified site; I10 Essential (primary) hypertension; F41.9 Anxiety disorder, unspecified; Z78.0 Asymptomatic menopausal state; Z79.899 Other long term (current) drug therapy
CPT/HCPCS: 01480; 20900; 28285; 28297; 28308; 36415; 71046; 73630; 76000; 80048; 80076; 85027; 85610; 85730; C1713; J7120

== ENCOUNTER → 2020-04-10 10:44 | Outpatient (CLI) | payer OTHER, SELFPAY ==
[2019-06-14 10:11] VITALS: BMI 29.9
== END ==
PROVIDERS: PCP Family Medicine; Visit Provider Family Medicine
DX: Z03.818 Encounter for observation for suspected exposure to other biological agents ruled out (principal)
CPT/HCPCS: 87635; C9803; U0003

== ENCOUNTER → 2021-05-31 | Outpatient (CLI) | payer OTHER, SELFPAY | END | disposition home or self-care (01) | LOC: LABSPEC 13:53 | PROVIDERS: PCP Family Medicine; Visit Provider Family Medicine | DX: U07.1 COVID-19 (principal) | CPT/HCPCS: 87633; 87635; U0005; U0003 ==

== ENCOUNTER 2021-06-05 14:14 | Outpatient (CLI) | payer OTHER, SELFPAY ==
[2021-06-05 14:37] VITALS: BP 142/95; PULSE 88; RESP 16; TEMP 36.9; O2SAT 96; BMI 25.0
[2021-06-05] MEDS: 0.9% Saline Lock 10 ML Syringe IV (14:39)
[2021-06-05 15:11] VITALS: BP 125/87; PULSE 82; RESP 18; TEMP 37.1; O2SAT 95
[2021-06-05 16:07] VITALS: BP 112/86; PULSE 72; RESP 16; TEMP 37; O2SAT 95
== END 2021-06-05 16:21 | disposition home or self-care (01) ==
LOC: MS3OUT 14:14 → MS3 14:15
PROVIDERS: PCP Family Medicine; Referring Provider Nurse Practitioner Adult Health; Visit Provider Nurse Practitioner Adult Health
DX: Z23 Encounter for immunization (principal); U07.1 COVID-19
CPT/HCPCS: J7050; M0245; Q0245; A4216

== ENCOUNTER 2021-09-23 10:54 | Outpatient (CLI) | payer OTHER, SELFPAY ==
[2021-09-23 11:03] LABS: Mucous, Urine 0 SEEN /hpf (<or=2+); Red Blood Cells-Urine 0 SEEN /hpf (0-5); White Blood Cells 0 SEEN /hpf (0-5)
--- NOTE | 2021-09-23 11:11 | RAD_ITS ---
STUDY: XR Chest 2 Views 09/23/2021 11:15 AM REASON FOR EXAM: Female, 66 years old. CHEST PAIN SOB COMPARISON: None TECHNIQUE: XR Chest 2 Views FINDINGS: There is no demonstrated pleural abnormality. Normal heart size. Normal mediastinum. Normal michael. Prominent appearing increased interstitial lung markings. Normal visualized pulmonary arteries. There is atherosclerotic calcification of the aortic arch with tortuosity. There are diffuse degenerative changes of the visualized thoracic spine. There is degenerative osteoarthritis of the bilateral shoulders. There is no demonstrated abnormality of the visualized soft tissue structures of the upper abdomen. RAD/Chest PA and Lateral IMPRESSION: There are no acute findings. Electronically Signed: Tank Villagomez MD at 16:51 EDT ,
[2021-09-23 12:17] LABS: Absolute Lymphocyte Count 1.09 X10^3/uL (0.83-4.51); Absolute Neutrophil Count 2.5 X10^3/uL (2.0-7.7); Basophil# 0.05 X10^3/uL; Basophil% 1.1 % (0-1); Eosinophil# 0.23 X10^3/uL; Eosinophils% 5.2 % (0-5); Hemoglobin 15.9 g/dL (12.0-15.0); Lymphocyte # 1.09 X10^3/ul (0.83-4.51); Lymphocyte % 24.7 % (19-41); Mean Corp Hgb Conc 33.8 g/dL (32-36); Mean Corpuscular Hgb 32.3 pg (27.0-32.0); Mean Corpuscular Volume 95.3 fL (81-99); Mean Platelet Vol. 10.9 fl (6.2-12.0); Monocyte# 0.52 X10^3/uL; Monocyte% 11.8 % (0-10); NRBC Flagged by Analyzer 0 % (0-5); Neutrophil # 2.52 X10^3/uL (2.7-7.7); Platelet Count 220 K/mm3 (150-450); RBC Distribution Width CV 11.9 % (11.6-14.6); RBC Distribution Width SD 41.2 fl (35.1-43.9); Red Blood Count 4.93 M/mm3 (4.2-5.4); White Blood Count 4.4 K/mm3 (4.4-11.0)
[2021-09-23 12:22] LABS: Color, Urine Yellow (Yellow); Glucose, Dipstick Normal (Normal); Ketone-Dipstick Negative (Negative); Leukocyte Esterase-Dipstick Negative /ul (Negative); Nitrite-Dipstick Negative (Negative); Occult Blood-Urine Negative /ul (Negative); Protein-Dipstick Negative (Negative); Urine Bilirubin Dipstick Negative (Negative); Urine Clarity Sl. Cloudy (Clear); Urine Urobilinogen Normal (Normal)
[2021-09-23 12:40] LABS: Bacteria 1+ /hpf (None Seen); Squamous Epithelial Cells - UA 0-5 SEEN /hpf (5-10)
[2021-09-23 12:55] LABS: ALB/GLOB Ratio 1.1 RATIO (0.9-2.4); AST(SGOT) 20 U/L (15-37); Alanine Aminotransfer ALT/SGPT 30 U/L (13-56); Albumin, Serum 3.9 g/dL (3.2-5.0); Alkaline Phosphatase 80 U/L (45-117); Anion Gap 3 (5-15); BUN 13 mg/dL (7-18); BUN/Creat Ratio 23.2 RATIO (10-20); Calcium,Total 8.8 mg/dL (8.5-10.1); Chloride 104 mmol/L (98-107); Cholesterol 220 mg/dL (200); Creatinine, Serum 0.56 mg/dL (0.55-1.02); EST Glomerular Filtration Rate 116 mL/min (>60); Est Glom Filt Rate - Afr Amer 140 mL/min (>60); Globulin 3.6 g/dL (2.2-4.2); Glucose 82 mg/dL (74-106); High Density Lipoprotein 96 mg/dL; Protein, Total 7.5 g/dL (6.4-8.2); Sodium Level 139 mmol/L (136-145); Thyroid Stim Hormone (TSH) 0.49 uIU/mL (0.358-3.74); Triglycerides 78 mg/dL; Very Low Density Lipoprotein 16 mg/dL (5-40)
== END 2021-09-23 23:59 | disposition home or self-care (01) ==
PROVIDERS: PCP Family Medicine; Referring Provider Family Medicine; Visit Provider Family Medicine
DX: R06.02 Shortness of breath (principal); I10 Essential (primary) hypertension
CPT/HCPCS: 36415; 71046; 80053; 80061; 81001; 84443; 85025

== ENCOUNTER → 2021-10-07 | Outpatient (CLI) | payer OTHER, SELFPAY ==
--- NOTE | 2021-10-07 13:57 | ECHOD_ITS ---
Reason For Study: Murmur Procedure This was a 2D Doppler, Color Flow transthoracic echocardiogram. The exam was of adequate technical quality. Exam performed in department. Left Ventricle Normal LV size. Left ventricular systolic function is normal. The estimated ejection fraction is 70 %. No evidence for diastolic dysfunction. No regional wall motion abnormalities noted. Right Ventricle Normal RV size. Normal systolic function. Atria Normal left atrium. Normal right atrium. No doppler evidence for ASD. Mitral Valve There is no mitral annular calcification. Normal mitral valve. Mild (1+) mitral valve insufficiency. Tricuspid Valve Normal tricuspid valve. Trivial tricuspid valve insufficiency. Right ventricular systolic pressure estimated to be 32 mmHg. Aortic Valve Trisinus/trileaflet aortic valve. Normal aortic valve. Trivial aortic valve insufficiency. Pulmonic Valve The pulmonic valve is not well visualized. Great Vessels The aortic root is not well visualized. Pericardium/Pleural No pericardial effusion. MMode/2D Measurements & Calculations LVIDd: 4.4 cm IVSd: 1.3 cm LA dimension: 3.9 cm LVIDs: 2.5 cm LVPWd: 1.0 cm FS: 43.5 % LAV(MOD-bp): 31.5 ml LA A4 area: 11.6 cm2 RA A4 area: 10.4 cm2 LAV(MOD-bp) Indexed: 18.9 ml/m2 LAV(MOD-sp2): 31.0 ml LAV(MOD-sp4): 27.0 ml Time Measurements MV dec time: 0.19 sec Doppler Measurements & Calculations MV E max prnaav: 75.5 cm/sec Lat Peak E' Pranav: 8.4 cm/sec Med Peak E' Pranav: 5.9 cm/sec MV A max pranav: 83.8 cm/sec E/E' lat: 9.0 E/E' med: 12.9 MV E/A: 0.90 MV V2 max: 86.8 cm/sec MV P1/2t max pranav: 75.8 cm/sec Ao V2 max: 124.6 cm/sec MV max P.0 mmHg MV P1/2t: 84.4 msec Ao max P.2 mmHg MV V2 mean: 47.6 cm/sec MV dec slope: 262.9 cm/sec2 MV mean P.1 mmHg MVA(P1/2t): 2.6 cm2 MV V2 VTI: 22.5 cm AI max pranav: 450.8 cm/sec LV V1 max: 109.5 cm/sec PA V2 max: 90.5 cm/sec AI max P.4 mmHg LV V1 max P.8 mmHg AI dec slope: 169.5 cm/sec2 AI P1/2t: 779.2 msec TR max pranav: 268.0 cm/sec TR max P.7 mmHg ECHO/Echo Complete Interpretation Summary Left ventricular systolic function is normal. The estimated ejection fraction is 70 %. Mild (1+) mitral valve insufficiency. Trivial tricuspid valve insufficiency. Trivial aortic valve insufficiency. Right ventricular systolic pressure estimated to be 32 mmHg. No evidence for diastolic dysfunction. Ordering Physician: Saroj Arreola Performed By: Kp Hylton RCS
== END | disposition home or self-care (01) ==
LOC: CVS 13:27
PROVIDERS: PCP Family Medicine; Visit Provider Family Medicine
DX: R01.1 Cardiac murmur, unspecified (principal)
CPT/HCPCS: 93306

== ENCOUNTER → 2021-10-14 | Outpatient (CLI) | payer OTHER, SELFPAY ==
--- NOTE | 2021-10-14 16:47 | CT_ITS ---
EXAM: CT LEFT LOWER EXTREMITY WITHOUT INTRAVENOUS CONTRAST CLINICAL INDICATION: LEFT FOOT HALLUX VALGUS TECHNIQUE: Helically acquired images were obtained of the left lower extremity without intravenous contrast. 2-D reformats were performed by the technologist. This CT exam was performed using one or more of the following dose reduction techniques: automated exposure control, adjustment of the mA and/or kV according to patient size, and/or use of iterative reconstruction technique. This report was created using Mixpo report generation technology. RADIATION DOSE: CTDIvol = 15.35 mGy, DLP = 392.14 mGy-cm COMPARISON: XR Jun 14 2019 12:57pm FINDINGS: BONES/JOINTS: There is degenerative arthrosis of the metatarsophalangeal joint of the hallux with a hallux valgus deformity. There is a calcaneal spur. There is demonstrated internal fixation of the first metatarsotarsal articulation with plate and multiple screws. There is osseous fusion as well. One large screw extends from the 1st metatarsal bone through the second metatarsal bone. A screw is demonstrated in the second metatarsal head. Orthopedic hardware is seen involving the second PIP joint. No acute fracture. SOFT TISSUES: Unremarkable. No soft tissue swelling or gas. No radiopaque foreign body. VASCULATURE: There are atherosclerotic vascular calcifications. CT/Extremity Lower without Contra IMPRESSION: There is degenerative arthrosis of the metatarsophalangeal joint of the hallux with a hallux valgus deformity. Electronically Signed: Tank Villagomez MD at 18:25 EDT ,
== END | disposition home or self-care (01) ==
PROVIDERS: PCP Family Medicine; Visit Provider Podiatrist
DX: M20.12 Hallux valgus (acquired), left foot (principal); M20.42 Other hammer toe(s) (acquired), left foot; M19.072 Primary osteoarthritis, left ankle and foot
CPT/HCPCS: 73700

== ENCOUNTER → 2021-10-21 | Outpatient (CLI) | payer OTHER, SELFPAY ==
[2021-10-21 10:22] LABS: Absolute Lymphocyte Count 1.15 X10^3/uL (0.83-4.51); Basophil# 0.03 X10^3/uL; Basophil% 0.6 % (0-1); Eosinophil# 0.16 X10^3/uL; Eosinophils% 3.3 % (0-5); Hematocrit 45.3 % (37-47); Lymphocyte # 1.15 X10^3/ul (0.83-4.51); Lymphocyte % 23.7 % (19-41); Mean Corp Hgb Conc 33.1 g/dL (32-36); Mean Corpuscular Hgb 32.1 pg (27.0-32.0); Mean Corpuscular Volume 96.8 fL (81-99); Mean Platelet Vol. 11.4 fl (6.2-12.0); Monocyte# 0.54 X10^3/uL; Monocyte% 11.1 % (0-10); NRBC Flagged by Analyzer 0 % (0-5); Neutrophil # 2.97 X10^3/uL (2.7-7.7); Neutrophil % 61.1 % (47-70); Platelet Count 203 K/mm3 (150-450); Red Blood Count 4.68 M/mm3 (4.2-5.4); White Blood Count 4.9 K/mm3 (4.4-11.0)
[2021-10-21 10:34] LABS: Ferritin 199 ng/mL (8-252); Iron 188 ug/dL (50-170); Iron Binding Capacity,Total 257 ug/dL (250-450)
[2021-10-22 16:43] LABS: Transferrin 204 mg/dL (192-364)
== END | disposition home or self-care (01) ==
LOC: MFPLAB 08:51
PROVIDERS: PCP Family Medicine; Visit Provider Family Medicine
DX: D75.1 Secondary polycythemia (principal)
CPT/HCPCS: 36415; 82728; 83540; 83550; 84466; 85025

== ENCOUNTER → 2022-03-05 | Outpatient (CLI) | payer OTHER, SELFPAY ==
[2022-03-05 17:38] LABS: Absolute Lymphocyte Count 1.78 X10^3/uL (0.83-4.51); Absolute Neutrophil Count 3.1 X10^3/uL (2.0-7.7); Basophil# 0.02 X10^3/uL; Basophil% 0.4 % (0-1); Eosinophil# 0.16 X10^3/uL; Eosinophils% 2.8 % (0-5); Hematocrit 42.3 % (37-47); Hemoglobin 13.9 g/dL (12.0-15.0); Lymphocyte # 1.78 X10^3/ul (0.83-4.51); Lymphocyte % 31.6 % (19-41); Mean Corp Hgb Conc 32.9 g/dL (32-36); Mean Corpuscular Hgb 32.2 pg (27.0-32.0); Mean Corpuscular Volume 97.9 fL (81-99); Mean Platelet Vol. 11.6 fl (6.2-12.0); Monocyte# 0.58 X10^3/uL; Monocyte% 10.3 % (0-10); NRBC Flagged by Analyzer 0 % (0-5); Neutrophil # 3.09 X10^3/uL (2.7-7.7); Neutrophil % 54.7 % (47-70); Platelet Count 225 K/mm3 (150-450); RBC Distribution Width CV 12.2 % (11.6-14.6); RBC Distribution Width SD 44.1 fl (35.1-43.9); Red Blood Count 4.32 M/mm3 (4.2-5.4); White Blood Count 5.6 K/mm3 (4.4-11.0)
[2022-03-05 17:48] LABS: Vitamin D,25 Hydroxy 19.1 ng/mL
[2022-03-05 18:14] LABS: AST(SGOT) 19 U/L (15-37); Alanine Aminotransfer ALT/SGPT 27 U/L (13-56); Albumin, Serum 3.7 g/dL (3.2-5.0); Alkaline Phosphatase 79 U/L (45-117); Anion Gap 6 (5-15); BUN 14 mg/dL (7-18); BUN/Creat Ratio 21.4 RATIO (10-20); CPK Total, Creatine Kinase 62 U/L (26-192); Calcium,Total 9.5 mg/dL (8.5-10.1); Chloride 101 mmol/L (98-107); Cholesterol 231 mg/dL (200); Creatinine, Serum 0.66 mg/dL (0.55-1.02); EST Glomerular Filtration Rate 97 mL/min (>60); Est Glom Filt Rate - Afr Amer 117 mL/min (>60); Ferritin 255 ng/mL (8-252); Globulin 3.6 g/dL (2.2-4.2); Glucose 88 mg/dL (74-106); High Density Lipoprotein 104 mg/dL; Magnesium 2.1 mg/dL (1.6-2.6); Potassium 3.9 mmol/L (3.5-5.1); Protein, Total 7.3 g/dL (6.4-8.2); Sodium Level 139 mmol/L (136-145); Thyroid Stim Hormone (TSH) 0.94 uIU/mL (0.358-3.74); Triglycerides 72 mg/dL; Very Low Density Lipoprotein 14 mg/dL (5-40)
== END | disposition home or self-care (01) ==
LOC: MFPLAB 16:22
PROVIDERS: PCP Family Medicine; Referring Provider Family Medicine; Visit Provider Family Medicine
DX: I10 Essential (primary) hypertension (principal); R25.2 Cramp and spasm; E55.9 Vitamin D deficiency, unspecified
CPT/HCPCS: 36415; 80053; 80061; 82306; 82550; 82728; 83735; 84443; 85025

== ENCOUNTER → 2022-03-13 | Outpatient (CLI) | payer OTHER, SELFPAY ==
[2022-03-13 12:17] LABS: Absolute Lymphocyte Count 1.35 X10^3/uL (0.83-4.51); Basophil# 0.03 X10^3/uL; Basophil% 0.6 % (0-1); Eosinophil# 0.15 X10^3/uL; Hematocrit 43.8 % (37-47); Hemoglobin 14.6 g/dL (12.0-15.0); Lymphocyte # 1.35 X10^3/ul (0.83-4.51); Lymphocyte % 27.3 % (19-41); Mean Corp Hgb Conc 33.3 g/dL (32-36); Mean Corpuscular Hgb 32.7 pg (27.0-32.0); Mean Corpuscular Volume 98.2 fL (81-99); Mean Platelet Vol. 11.2 fl (6.2-12.0); Monocyte# 0.45 X10^3/uL; Monocyte% 9.1 % (0-10); NRBC Flagged by Analyzer 0 % (0-5); Neutrophil # 2.95 X10^3/uL (2.7-7.7); Neutrophil % 59.8 % (47-70); Platelet Count 242 K/mm3 (150-450); RBC Distribution Width CV 12.3 % (11.6-14.6); RBC Distribution Width SD 44.2 fl (35.1-43.9); Red Blood Count 4.46 M/mm3 (4.2-5.4); White Blood Count 4.9 K/mm3 (4.4-11.0)
[2022-03-13 13:03] LABS: Anion Gap 5 (5-15); BUN 8 mg/dL (7-18); BUN/Creat Ratio 14.5 RATIO (10-20); Calcium,Total 9.8 mg/dL (8.5-10.1); Chloride 106 mmol/L (98-107); Creatinine, Serum 0.55 mg/dL (0.55-1.02); EST Glomerular Filtration Rate 118 mL/min (>60); Est Glom Filt Rate - Afr Amer 142 mL/min (>60); Glucose 82 mg/dL (74-106); Potassium 4.1 mmol/L (3.5-5.1); Sodium Level 142 mmol/L (136-145); Thyroid Stim Hormone (TSH) 1.01 uIU/mL (0.358-3.74); Troponin-I HS 6 pg/mL (3.0-54.0)
== END | disposition home or self-care (01) ==
LOC: MFPLAB 10:45
PROVIDERS: Family Medicine; PCP Family Medicine; Referring Provider Family Medicine; Visit Provider Family Medicine
DX: I10 Essential (primary) hypertension (principal)
CPT/HCPCS: 36415; 80048; 84443; 84484; 85025

== ENCOUNTER → 2022-06-06 | Outpatient (CLI) | payer OTHER, SELFPAY ==
[2022-06-06 10:27] LABS: Absolute Lymphocyte Count 1.36 X10^3/uL (0.83-4.51); Basophil# 0.05 X10^3/uL; Eosinophil# 0.12 X10^3/uL; Eosinophils% 2.4 % (0-5); Hematocrit 45.7 % (37-47); Hemoglobin 15.3 g/dL (12.0-15.0); Lymphocyte # 1.36 X10^3/ul (0.83-4.51); Lymphocyte % 27.4 % (19-41); Mean Corp Hgb Conc 33.5 g/dL (32-36); Mean Corpuscular Hgb 33.2 pg (27.0-32.0); Mean Corpuscular Volume 99.1 fL (81-99); Mean Platelet Vol. 11.3 fl (6.2-12.0); Monocyte# 0.42 X10^3/uL; Monocyte% 8.5 % (0-10); NRBC Flagged by Analyzer 0 % (0-5); Neutrophil % 60.3 % (47-70); Platelet Count 253 K/mm3 (150-450); RBC Distribution Width CV 12.2 % (11.6-14.6); RBC Distribution Width SD 44.3 fl (35.1-43.9); Red Blood Count 4.61 M/mm3 (4.2-5.4)
[2022-06-06 10:56] LABS: ALB/GLOB Ratio 1.4 RATIO (0.9-2.4); AST(SGOT) 21 U/L (15-37); Alanine Aminotransfer ALT/SGPT 37 U/L (13-56); Alkaline Phosphatase 71 U/L (45-117); Anion Gap 4 (5-15); BUN 13 mg/dL (7-18); BUN/Creat Ratio 21.8 RATIO (10-20); Calcium,Total 9.2 mg/dL (8.5-10.1); Chloride 107 mmol/L (98-107); EST Glomerular Filtration Rate 108 mL/min (>60); Est Glom Filt Rate - Afr Amer 130 mL/min (>60); Globulin 2.9 g/dL (2.2-4.2); Glucose 103 mg/dL (74-106); Potassium 4.2 mmol/L (3.5-5.1); Protein, Total 6.9 g/dL (6.4-8.2); Sodium Level 142 mmol/L (136-145)
== END | disposition home or self-care (01) ==
PROVIDERS: PCP Family Medicine; Visit Provider Family Medicine
DX: Z01.818 Encounter for other preprocedural examination (principal)
CPT/HCPCS: 36415; 80053; 85025

== ENCOUNTER 2022-06-10 12:14 | Day surgery (SDC) | payer OTHER, SELFPAY ==
[2022-06-10 13:13] VITALS: BP 148/70; PULSE 65; RESP 16; TEMP 36.4; O2SAT 100; BMI 27.8
[2022-06-10] MEDS: Lactated Ringers 1,000 ML 15 ML IV (13:20)
--- NOTE | 2022-06-10 13:50 | RAD_ITS ---
STUDY: X-RAY - LEFT FOOT CLINICAL: Female, 66 years old. PAIN TECHNIQUE: view(s) of the foot. COMPARISON: None. FINDINGS: There is evidence of surgical fusion of the first tarsometatarsal joint. There is a plate and screws. Additional screws transfixing the bases of first and second metatarsal. There are pins through the heads of both the second third metatarsals as well as a bridging plate and screws along the dorsum of the second proximal interphalangeal joint. Additionally there is a metal kriss transfixing the first metatarsal phalangeal joint. RAD/Foot 2 Views IMPRESSION: Surgical changes of the right foot. Electronically Signed: Alvaro Camarillo DO at 19:27 EST ,
--- NOTE | 2022-06-10 14:00 | BON_PTH ---
PATIENT: LUCIAN SMITH [place] [facility] [place][id number] AGE/SX: 66/F ROOM: RE06/10/[address]: Dr. Colby Jesus DPM : 1955 BED: DIS: 06/10/2022 SPEC #: [id number] RECD: 06/11/22 09:41 STATUS: CY REBritton #: [id number] NHUNG: 06/10/22 14:[address]: Colby Jesus DEPT: SURGICAL PATHOLOGY RECD BY: Jimmy Starr ENTERED: 06/11/22 10:23 SP TYPE: Bone OTHR DR: Dr. Saroj Arreola MD Tissues: A - Bone of foot, NOS B - TISSUE SURGICALLY REMOVED Procedures: Decalcification bone/plaque Surgery Specimen Level III Surgery Specimen Level IV HEADER OPERATION: Foot first metatarsophalangeal joint, Ware arthroplasty PRE-OP DIAGNOSIS: Left foot pain TISSUE SUBMITTED: A ? Bone from first toe, B ? Skin lesion left foot MICROSCOPIC DIAGNOSIS A. Bone from first toe: Pieces of bone with reactive changes. B. Skin lesion left foot: Acanthosis and extensive hyperkeratosis. Negative for malignancy. :rachana 06/13/2022 MICROSCOPIC DESCRIPTION Slides are reviewed. GROSS DESCRIPTION A - Received in fixative is one container labeled with the patient's name and designated bone from first toe. The specimen consists of multiple fragments of bone that in aggregate measure 3 x 2.5 x 0.3 cm. The specimen is totally submitted in one cassette after decalcification. / : 06/12/2022 B - Received in fixative is one container labeled with the patient's name and designated skin lesion left foot. The specimen consists of a piece of grayson-white skin ellipse measuring 1.2 x 0.4 cm and up to 0.7 cm in thickness. The specimen is inked, serially sectioned and submitted entirely in one cassette. / :rachana 06/11/2022 TC:5 CPT: 57473, 51023, 47138
[2022-06-10] MEDS: Cefazolin 2 GM in 0.9% Normal Saline 100 ML IV (16:16)
[2022-06-10] MEDS: Bupivacaine Mpf 0.5% 30 ML VIAL (16:16)
--- NOTE | 2022-06-10 18:23 | PCM.OPRPT ---
Problems Associated Problem List Diagnoses (1) Acquired deformity of left foot: Report of Operation Date of Procedure: 06/10/22 Pre-Operative Diagnosis: Hallux valgus deformity left 1st toe Deformed 3rd metatarsal, left foot Skin lesion plantar left foot Post-Operative Diagnosis: Same Surgery/Procedure Performed:: 1. Ware arthroplasty left 1st metatarsal phalangeal joint 2. Regina osteotomy left 3rd metatarsal 3. Excision of skin lesion left foot Surgeon: Colby Jesus machine maintenance technician: Jagruti Type of Anesthesia: Local and MAC Specimen's removed: Bone from left 1st toe sent to pathology Skin lesion from left foot sent to pathology Estimated Blood Loss (mL): 10mL Description of Procedure: Indications: This is a 66 year old female with chronic left foot pain and deformity despite nonsurgical treatment. She has difficulty with shoes and activities. Since symptoms persist despite nonsurgical care, we discussed surgical options. Reviewed the procedures, possible benefits vs risks, goals, expectations, and estimated healing time. She expressed understanding and agreement. No guarantees were given nor implied. No warranties were given. She was advised the risks include but not limited to pain, recurrence, need for further surgery, blood clots, numbness, swelling, infection, scar tissue, weakness, deformity, loss of limb, and loss of life. She expressed understanding and agreement, and was able to repeat back. Patient freely signed the consent forms and elected to proceed forward with the procedures. Operative procedure: She was brought back into the operating room and was placed on the operating room table in the supine position. A timeout was performed and the patient was properly identified and the surgical plan was confirmed. The patient did receive 2 g of IV Ancef for antibiotic prophylaxis. The patient received MAC anesthesia per the anesthesia team. A well padded pneumatic tourniquet was applied around the left ankle. A total of 20mL of 0.5% Bupivacaine plain was given as a local nerve block around the left foot 1st and 3rd rays after the overlying skin was cleansed with 70% Isopropyl alcohol. The left foot was scrubbed, prepped and draped in the usual aseptic fashion. Further attention was directed to the left foot. There was noted to be significant lateral deviation of the 1st toe under riding the 2nd toe and abutting the 3rd toe. There was a deep callus skin lesion to the plantar 3rd metatarsal head, the 3rd metatarsal was deformity and was elongated. The left foot was exsanguinated using elevation and the left ankle pneumatic tourniquet was inflated to 250mmHg. Left 1st metatarsal phalangeal joint hallux valgus Ware arthroplasty: The 1st toe was significantly laterally deviated into the 2nd toe and in valgus position. A linear longitudinal skin incision was made overlying the dorsal medial aspect of the 1st metatarsal phalangeal joint, located medial to the extensor hallucis longus tendon. The incision was carefully deepened to the dorsal 1st metatarsal phalangeal joint capsule, which was incised and partially reflected exposing the 1st metatarsal head as well as the base of the hallux proximal phalanx. The 1st MTPJ was visualized and there was some diffuse degenerative changes present. The base of the hallux proximal phalanx was excised but the distal insertion point of? the flexor digitorum brevis was left intact.? The resected bone was sent to pathology for further evaluation. The extensor hallucis longus tendon (EHL) was significantly contracted and bowstrung causing the 1st toe to be pulled into an adducted position. Therefore a EHL tendon lengthening had to be completed, in which a Z lengthening was completed and repaired using 4-0 Vicryl. After this was completed the toe was now in good alignment. The site was stabilized with a Ganesh pin through the 1st toe into the 1st metatarsal with the 1st toe in rectus position and out to normal length. The site was flushed out with copious amounts of normal saline solution. The capsule was reapproximated using 3-0 Vicryl, the subcutaneous tissue was reapproximated using 3-0 Vicryl, and the skin was reapproximated using 3-0 Nylon. Left 3rd metatarsal osteotomy: A curvilinear skin incision was made overlying the dorsal 3rd metatarsal phalangeal joint using a 15 scalpel blade. Careful dissection was completed down through the subcutaneous tissue layer. The extensor tendons were identified and were retracted safely out of the way. The dorsal 3rd metatarsal phalangeal joint capsule was incised with a 15 blade. The metatarsal head was visualized. There was noted to be significant adhesions to the plantar aspect of the joint at the level of the plantar plate, with lateral plantar plate tear. The 3rd metatarsal was deformed being long, but otherwise the joint did appear to be healthy and viable. A regina osteotomy was completed through the distal 3rd metatarsal using a powered sagittal saw, being sure to make the osteotomy parallel to the weightbearing surface. The 3rd metatarsal head was gently placed in a more proximal position and the osteotomy site was fixated using one 2.5mm cannulated headless Arthrex screw using rigid open reduction internal fixation technique. There was excellent stability and fixation to the osteotomy site. Intraoperative fluoroscopy was used to confirmed proper positioning and fixation. The site was flushed out with copious amounts of normal saline solution. The joint capsule was reapproximated using 3-0 Vicryl. The subcutaneous tissue was reapproximated using 3-0 Vicryl and the skin was reapproximated using 3-0 Nylon. Left plantar foot removal of skin lesion: there was a callus like skin lesions to the plantar foot at level of sub 3rd metatarsal head. It was raised, hard with a core of callus present. The lesion measures 2mm x 3mm. The lesion was eclipsed out (full thickess skin incision) and was excised. It was sent to pathology as a specimen. The remaining tissues appeared healthy and viable. There was no deeper invovlement noted. The site was flushed out with copious amounts of normal saline solution. The skin was reapproximated using 3-0 Nylon. The pneumatic tourniquet was deflated at 100 minutes, and there was immediate return of warmth and perfusion to the foot and to all toes on the foot with normal temperature gradient and CFT < 2 seconds to all toes. Hemostasis was achieved with no significant bleeding noted.? Also of note all vital structures including all vital neurovascular and soft tissue structures were properly identified, retracted, and protected as necessary during the procedures. Also of noted intra operative fluoroscopy was used as needed to confirm the above procedures. At the end, a dressing was applied which consisted of Betadine soaked adaptic, 4x4 gauze, Kerlix, and harman bandage was applied being sure to apply it not too tight. ? The patient tolerated the above operative procedure well at the anesthesia well with no complication. The patient was transported to the recovery room with vital signs stable and in good condition. Post operative orders were placed. Post operative instructions were reviewed and dispensed verbal and written. No weightbearing left forefoot, keep left foot elevated for at least 50 minutes of every hour, keep dressing clean, dry and intact. Prescription for [place] 5/325mg 1-2 tabs PO q 6 hours prn pain was prescribed. Also Augmentin 500/125mg PO q 12 hours was prescribed for antibiotic prophylaxis. She is to follow up with me next next week, sooner if needed. Also post op foot xrays (left) were obtained and reviewed in the PACU. Findings show 1st Toe Ware arthroplasty with 1st toe in rectus position and 3rd metatarsal osteotomy in good position. No complications seen. Grafts/Implants Used: 1 x 2.5mm Arthrex screw left foot Complications None
[2022-06-10 18:26] VITALS: BP 148/70; BP 149/93; PULSE 93; RESP 18; TEMP 36.2; O2SAT 98
[2022-06-10 18:30] VITALS: BP 148/70; BP 149/66; PULSE 73; RESP 16; O2SAT 97
--- NOTE | 2022-06-10 18:31 | DCINST_ITS ---
Discharge Instructions Diet Discharge Diet: Light diet - advance as tolerated Activity Discharge Activity: May Not Drive Weight Bearing Status: No weight bearing (No weightbearing on left foot) Keep extremity elevated above heart level: Left Leg (Keep left foot elevated for at least 50 minutes of every hour using pillows.) Dressing / Incision Call your doctor if your incision/area has: Continuous Slow Oozing, Sudden Increased Bleeding, Increased Pain/ Swelling and Foul Smelling Discharge Call your doctor if you observe: Fever of 101 or Higher, Shortness of breath, Chest pain, Increased palpitations (irregular heartbeat), Calf discomfort and Uncontrolled pain Change Dressing in: do not change dressing Remove Dressing in: do not remove dressing Cleanse incision/area with: Keep Dressing Clean & Dry Follow Up Care Please Follow Up With: Colby Jesus DPM When: in 1 week at office, sooner if needed. Call Dr. Jesus if needed: [phone] - cell [phone] - office Test Results: Test results from this visit will be discussed in further detail at your follow- up appointment, if applicable. Discharge Plan Admission Attending Provider: Colby Jesus Primary Care Provider: Saroj Arreola Discharge Orders/Prescriptions Prescriptions: New hydrocodone-acetaminophen 5-325 mg tablet 1 - 2 tab PO Q6H 3 Days Qty: 24 0RF amoxicillin-pot clavulanate [Augmentin] 500-125 mg tablet 1 tab PO Q12H Qty: 10 0RF No Action metoprolol tartrate 50 MG tablet 50 mg PO QHS lisinopril 5 mg Tablet 5 mg PO DAILY Referrals / Follow Up: Saroj Arreola MD [Primary Care Provider] - Disposition Disposition (needs filled in before D/C Order can be placed): Home, Self Care
--- NOTE | 2022-06-10 18:35 | RAD_ITS ---
STUDY: X-RAY - LEFT FOOT CLINICAL: Female, 66 years old. Postop. TECHNIQUE: 3 view(s) of the foot. COMPARISON: Left foot, June 14, 2019. And June 10, 2022 FINDINGS: There is a plantar calcaneal spur. Normal talus and tarsal bones. Arthrosis of the visualized subtalar, talonavicular, calcaneocuboid, tarsal and tarsometatarsal articulations. There is a plate and screws transfixing the first tarsal metatarsal joint. Screws also extend to the base of first metatarsal into the base of the second metatarsal as well as posteriorly into the anterior cuneiform. There is a metal kriss transfixing the great toe and first metatarsophalangeal joint. Appears to be associated resection of the base of the proximal phalanx. Screws are seen to the heads of both the second and third metatarsals. Additionally there is a plate and screws overlying the proximal interphalangeal joint of the second digit. RAD/Foot min 3 Views IMPRESSION: Surgical changes of the left foot, as noted on the earlier intraoperative images. Electronically Signed: Alvaro Camarillo DO at 19:13 EST ,
[2022-06-10 18:45] VITALS: BP 139/76; BP 148/70; PULSE 91; RESP 16; O2SAT 100
[2022-06-10 19:01] VITALS: BP 148/70; BP 149/79; PULSE 81; RESP 16; TEMP 36.6; O2SAT 97
[2022-06-10 19:25] VITALS: BP 148/70
== END 2022-06-10 19:25 | disposition home or self-care (01) ==
LOC: SDC 12:15 → AC 12:16
PROVIDERS: PCP Family Medicine; Referring Provider Podiatrist; Visit Provider Podiatrist
PROC: (CPT 28292; principal; 2022-06-10 13:45)
DX: M21.6X2 Other acquired deformities of left foot (principal); M20.12 Hallux valgus (acquired), left foot
CPT/HCPCS: 28292; 28485; 28308; 01480; 73620; 73630; 76000; 88304; 88305; 88311; C1713; J7120; J2405

== ENCOUNTER → 2022-08-26 | Outpatient (CLI) | payer MEDICARE, SELFPAY ==
[2022-08-26 14:12] LABS: Mucous, Urine 0 SEEN /hpf (<or=2+); Red Blood Cells-Urine 0 SEEN /hpf (0-5)
[2022-08-26 17:40] LABS: Absolute Lymphocyte Count 1.45 X10^3/uL (0.83-4.51); Absolute Neutrophil Count 4.1 X10^3/uL (2.0-7.7); Basophil# 0.05 X10^3/uL; Basophil% 0.8 % (0-1); Eosinophil# 0.13 X10^3/uL; Eosinophils% 2.1 % (0-5); Hematocrit 44.7 % (37-47); Lymphocyte # 1.45 X10^3/ul (0.83-4.51); Lymphocyte % 23.1 % (19-41); Mean Corp Hgb Conc 33.6 g/dL (32-36); Mean Corpuscular Hgb 32.8 pg (27.0-32.0); Mean Corpuscular Volume 97.6 fL (81-99); Monocyte# 0.51 X10^3/uL; Monocyte% 8.1 % (0-10); NRBC Flagged by Analyzer 0 % (0-5); Neutrophil # 4.13 X10^3/uL (2.7-7.7); Neutrophil % 65.7 % (47-70); Platelet Count 253 K/mm3 (150-450); RBC Distribution Width SD 43.1 fl (35.1-43.9); Red Blood Count 4.58 M/mm3 (4.2-5.4); White Blood Count 6.3 K/mm3 (4.4-11.0)
[2022-08-26 18:02] LABS: Color, Urine Yellow (Yellow); Glucose, Dipstick Normal (Normal); Ketone-Dipstick Negative (Negative); Leukocyte Esterase-Dipstick Negative /ul (Negative); Nitrite-Dipstick Negative (Negative); Occult Blood-Urine Negative /ul (Negative); Protein-Dipstick 15 mg/dl (Negative); Specific Gravity, Urine 1.025 (1.002-1.030); Urine Bilirubin Dipstick Negative (Negative); Urine Clarity Clear (Clear); Urine Urobilinogen Normal (Normal)
[2022-08-26 18:18] LABS: Bacteria 1+ /hpf (None Seen); Squamous Epithelial Cells - UA 0-5 SEEN /hpf (5-10); White Blood Cells 0-5 SEEN /hpf (0-5)
[2022-08-26 18:46] LABS: Vitamin D,25 Hydroxy 19.5 ng/mL
[2022-08-26 19:08] LABS: ALB/GLOB Ratio 1.2 RATIO (0.9-2.4); AST(SGOT) 27 U/L (15-37); Alanine Aminotransfer ALT/SGPT 37 U/L (13-56); Alkaline Phosphatase 79 U/L (45-117); Anion Gap 8 (5-15); BUN 13 mg/dL (7-18); BUN/Creat Ratio 21.5 RATIO (10-20); Calcium,Total 9.4 mg/dL (8.5-10.1); Chloride 105 mmol/L (98-107); Cholesterol 233 mg/dL (200); EST Glomerular Filtration Rate 106 mL/min (>60); Est Glom Filt Rate - Afr Amer 128 mL/min (>60); Ferritin 256 ng/mL (8-252); Globulin 3.2 g/dL (2.2-4.2); Glucose 91 mg/dL (74-106); High Density Lipoprotein 94 mg/dL; Iron 144 ug/dL (50-170); Iron Binding Capacity,Total 261 ug/dL (250-450); Potassium 3.6 mmol/L (3.5-5.1); Protein, Total 7.2 g/dL (6.4-8.2); Sodium Level 140 mmol/L (136-145); Thyroid Stim Hormone (TSH) 0.91 uIU/mL (0.358-3.74); Triglycerides 176 mg/dL; Very Low Density Lipoprotein 35 mg/dL (5-40)
[2022-08-28 15:33] LABS: Transferrin 212 mg/dL (192-364)
== END | disposition home or self-care (01) ==
PROVIDERS: PCP Family Medicine; Visit Provider Family Medicine
DX: R71.8 Other abnormality of red blood cells (principal); E55.9 Vitamin D deficiency, unspecified; I10 Essential (primary) hypertension
CPT/HCPCS: 36415; 80053; 80061; 81001; 82306; 82728; 83540; 83550; 84443; 84466; 85025

== ENCOUNTER 2022-09-19 09:14 | Day surgery (SDC) | payer MEDICARE, SELFPAY ==
[2022-09-19 09:50] VITALS: BP 182/73; PULSE 63; RESP 16; TEMP 36.3; O2SAT 99; BMI 28.6
[2022-09-19] MEDS: Lactated Ringers 1,000 ML 15 ML IV (09:55)
--- NOTE | 2022-09-19 10:46 | RAD_ITS ---
STUDY: X-RAY - LEFT FOOT CLINICAL: Female, 67 years old. REMOVAL OF SCREW TECHNIQUE: One fluoroscopic spot view(s) of the foot. COMPARISON: June 10, 2022. FINDINGS: Hardware transfixes the second PIP joint, metatarsal head and first and second tarsometatarsal joints. 1 minute 10 seconds. RAD/Foot 2 Views IMPRESSION: Please correlate with clinical service Electronically Signed: Mejia Hart MD at 20:39 EDT ,
[2022-09-19] MEDS: Cefazolin 2 GM in 0.9% Normal Saline 100 ML IV (11:33)
[2022-09-19] MEDS: Lidocaine 1% /Epi 1:100 (20ml) 20 ML Vial (11:35)
--- NOTE | 2022-09-19 12:18 | DCINST_ITS ---
Discharge Instructions Diet Discharge Diet: Light diet - advance as tolerated Activity Weight Bearing Status: - (Use Cam Walker boot with weightbearing to left foot.) Keep extremity elevated above heart level: Left Leg Dressing / Incision Call your doctor if your incision/area has: Continuous Slow Oozing and Foul Smelling Discharge Call your doctor if you observe: Fever of 101 or Higher, Shortness of breath, Chest pain, Calf discomfort and Uncontrolled pain Remove Dressing in: 2 days (Remove on Thursday, cleanse with soap and water, ok to get wet in shower but no soaking foot. After cleaning dry with a towel, apply small amount of neosporin and cover with gauze.) Cleanse incision/area with: Soap & Water Follow Up Care Please Follow Up With: Colby Jesus DPM When: 1 week, sooner if needed. Test Results: Test results from this visit will be discussed in further detail at your follow- up appointment, if applicable. Discharge Plan Admission Attending Provider: Colby Jesus Primary Care Provider: Saroj Arreola Discharge Orders/Prescriptions Prescriptions: No Action metoprolol tartrate 50 MG tablet 50 mg PO QHS ergocalciferol (vitamin D2) [Vitamin D2] 1,250 mcg (50,000 unit) Capsule 1,250 mcg PO QWEEK Cbd Gummy 1 - 2 tab PO/SL QHS Referrals / Follow Up: Saroj Arreola MD [Primary Care Provider] - Disposition Disposition (needs filled in before D/C Order can be placed): Home, Self Care
--- NOTE | 2022-09-19 12:22 | PCM.OPRPT ---
Report of Operation Date of Procedure: 09/19/22 Pre-Operative Diagnosis: Symptomatic hardware left 3rd metatarsal Post-Operative Diagnosis: Same Surgery/Procedure Performed:: Hardware removal from left 3rd metatarsal Surgeon: Colby Jesus machine installer: Dr Hsu Type of Anesthesia: General and Local Specimen's removed: None Estimated Blood Loss (mL): 10mL Description of Procedure: Indications: This is a 67 year old female with history of left foot surgery and presents for screw removal of the left 3rd metatarsal. She would like to proceed with hardware removal. This was discussed with her in detail, reviewed the procedures, as well as the rationale of the procedures with her in great detail. We discussed and reviewed the possible benefits vs risks/potential complications. The estimated healing/recovery time and protocol were reviewed with her in detail. Reviewed the goals and the expectations. She expressed understanding and agreement and elected to proceed forward with surgical intervention as noted above. Tobacco cessation advised, reviewed rationale of this with her. The consent forms were reviewed with her and she freely signed them. All of her questions were answered. No guarantees were given nor implied. She was cleared from medical standpoint to proceed with surgery. Operative Procedure: The patient was brought back into the operating room and was placed on the operating table in the supine position. Patient was carefully secured to the operating room table with a safety belt around her waist. A time out was performed and the patient was properly identified and the surgical plan was confirmed. The patient received IV antibiotic prophylaxis - 2g of Ancef. The patient received general anesthesia per the anesthesiologist. A well padded pneumatic tourniquet was applied around her left ankle. A total of 10mL of 1% Lidocaine with 1:100,000 epi was given as a local block around the 3rd ray hardware site on the left foot after the overlying skin was cleansed with 70% Isopropyl alcohol. The left foot was scrubbed, prepped, and draped in the usual aseptic fashion. A linear longitudinal skin incision was to the dorsal 3rd metatarsal head. This was done using a 15 blade. The left foot was exsanguinated and the pneumatic tourniquet left ankle was inflated in 250mmHg. Careful dissection was completed down to the hardware. The screw was removed in toto without complication. This was checked and confirmed with intraoperative fluoroscopy. Tissues were healthy and viable at this time. The skin was reapproximated using 4-0 Nylon. The pneumatic tourniquet was deflated (total tourniquet time was 17 minutes) and there was return of normal warmth and perfusion to the foot and to all toes on the foot with normal temperature gradient and CFT < 2 seconds to all toes. A dressing was applied which consisted of betadine soaked adaptic, 4x4 gauze, kerlix, and an harman bandage. Of note, all vital structures including all vital neurovascular and tendon structures were properly identified, protected, and retracted as necessary throughout the above operative procedures. The patient tolerated the above operative procedures well at the anesthesia well with no complication. The patient was transported from the operating room to the recovery room with vital signs stable and in good condition. Post operative orders were placed. Post operative instructions were reviewed with and Saroj. Grafts/Implants Used: None
[2022-09-19 12:27] VITALS: BP 150/74; BP 182/73; PULSE 70; RESP 18; TEMP 36.4; O2SAT 100
[2022-09-19 12:30] VITALS: BP 164/76; BP 182/73; PULSE 65; RESP 18; O2SAT 95
[2022-09-19 12:45] VITALS: BP 148/71; BP 182/73; PULSE 61; RESP 16; TEMP 36.4; O2SAT 97
[2022-09-19] MEDS: Acetaminophen 325 MG Tablet 650 MG PO (13:28)
[2022-09-19] MEDS: Ibuprofen 200 MG Tablet 400 MG PO (13:28)
[2022-09-19 13:43] VITALS: BP 182/73
== END 2022-09-19 13:44 | disposition home or self-care (01) ==
LOC: SDC 09:16 → AC 09:17
PROVIDERS: PCP Family Medicine; Referring Provider Podiatrist; Visit Provider Podiatrist
PROC: (CPT 20680; principal; 2022-09-19 10:45)
DX: Z47.2 Encounter for removal of internal fixation device (principal); I10 Essential (primary) hypertension; Z96.651 Presence of right artificial knee joint
CPT/HCPCS: 20680; 01480; 73620; 76000; J7120; J2405

== ENCOUNTER 2023-06-18 23:33 | Emergency (ER) | payer MEDICARE, SELFPAY ==
--- NOTE | 2023-06-18 00:20 | RAD_ITS ---
INDICATION: injury EXAMINATION/TECHNIQUE: X-RAY - RIGHT XR Shoulder Min 2 Views 2 VIEWS COMPARISON: None. FINDINGS: BONES: Impaction fracture of the humeral head, Hill-Sachs lesion. JOINTS: Humeral head is displaced anterior and inferior in relation to the glenoid. SOFT TISSUES: Unremarkable. RAD/Shoulder min 2 Views IMPRESSION: Anterior shoulder dislocation. Impaction fracture of the humeral head. Electronically Signed: Kaylan Khalil MD at 0:31 EST ,
[2023-06-18 23:34] VITALS: BP 164/91; PULSE 68; RESP 14; TEMP 36.6; O2SAT 96; BMI 29.5
--- NOTE | 2023-06-18 23:54 | EDS_ITS ---
HPI History of Present Illness Chief Complaint: Upper Extremity Injury Informant: patient Narrative Narrative: 67-year-old female states she was drinking tonight and walking in her new home on carpet and stumbled as a result of carpet and drinking she thinks, falling and injuring her right shoulder. She is not sure how she landed on it but she cannot move it and the pain is severe. Arrives by EMS. She denies any numbness or tingling. Denies any other injury or pain. [id number]. PFSH PFS Medical History Abdominal pain Alcohol use Anxiety Arthritis Blackout Cancer Easy bruising History of echocardiogram History of edema History of pain when walking Hypertension Leg cramps Non-smoker Restless legs Shortness of breath on exertion Vertigo Wears glasses Home Medications metoprolol tartrate 50 mg tablet 50 mg PO QHS 02/28/19 [History Last Taken 09/19/22 07:00] Cbd Gummy 1 - 2 tab PO/SL QHS 09/12/22 [History Last Taken Unknown] benzonatate 100 mg capsule 100 mg PO TID PRN cough 06/18/23 [History Last Taken Unknown] buspirone 10 mg tablet 10 mg PO DAILY 06/18/23 [History Last Taken Unknown] Allergy/AdvReac Type Severity Reaction Status Date / Time No Known Allergies Allergy Verified 09/19/22 09:48 Family History Brother Asthma Colon cancer Daughter Asthma Mother Arthritis CVA (cerebral vascular accident) Father Arthritis Colon cancer Sister Breast cancer Hypertension Grandmother Cancer skin cancer Aunt Cancer skin cancer Surgical History History of hysterectomy History of total right knee replacement Hx of arthroplasty Hx of colonoscopy Hx of foot surgery Hx of left knee surgery Hx of right knee surgery Social History Smoking Status: Never smoker alcohol intake: current alcohol intake frequency: 0-2 drinks per day details: 2-3 white claws per day substance use type: does not use ROS ROS ED Constitutional Constitutional ED: Denies chills or fever(s) Musculoskeletal Musculoskeletal: Reports extremity pain; Denies neck pain Integumentary Denies Abrasions, rash or wounds Neurologic Neurologic: Denies paresthesias or weakness EXAM Physical Exam Const Vital Signs: 06/18/23 23:34 Temperature 97.8 F Temperature Source Temporal Pulse Rate 68 Respiratory Rate 14 Blood Pressure 164/91 H Blood Pressure Mean 115 Pulse Ox 96 Oxygen Delivery Method Room Air Positive well nourished and well developed General Appearance ED: well developed and NAD Neck full ROM and supple Back/Spine normal ROM and normal to inspection Extremity Extremity Narrative: Deformity of the right shoulder consistent with probable anterior dislocation. There is no tenderness or deformity at the acromioclavicular joint or the acromion proper. As long she does not move, she has no tenderness in the mid or distal humerus, elbow, or distal to that. She is neurovascular intact distally with a 2+/4 radial pulse. All other 3 extremities move fully without any difficulty. No tenderness in the chest wall. Neuro oriented x3, no focal motor deficits and no sensory deficits noted Sensorium / Orientation: alert Psych mental status grossly normal and thought process normal Skin no wounds Rashes: no rashes MDM MDM MDM Narrative Medical decision making narrative: 2 view x-ray series of the right shoulder confirms my clinical suspicion of anterior dislocation without fracture on my interpretation of the films. Radiology was in agreement. Prior to waiting for radiology's interpretation, I advised the patient if she is amenable after parenteral analgesic, we could try Milch maneuver without sedation in order to try to get it reduced quicker. She was amenable. However she had trouble relaxing the musculature and was not able to successfully get it reduced. She was then amenable to procedural sedation, this was done with propofol see the procedure note, and I was able to successfully reduce it gently with Milch maneuver when her musculature was relaxed. 2 view postreduction x-ray series of my interpretation shows good close reduction, I do not see a Hill-Sachs lesion or a Bankart lesion. Patient was placed in a sling and will be discharged home with close outpatient follow- up with orthopedics. Procedures Procedural Sedation 1 (Initial Baseline): Consent Signed: Yes Any Problems With Anesthesia: No Sedation medication: Propofol Dose: 80 Route: IV Total Moderate Sedation Units: 10 Maliampati Score: Class III ASA Classification: I Comment:: On monitor with prophylactic nasal cannula oxygenation and IV fluids, end-tidal CO2 monitoring, airway equipment at the bedside. Tolerated well with no complications. Other Procedures Procedure(s): Closed reduction right anterior shoulder dislocation: Initially attempted with Milch maneuver prior to sedation but unsuccessful. Neurovascular intact distally after attempts. After sedating and relaxing musculature, and after informed consent for both residual sedation and closed reduction discussing risks and benefits, attempted again with Milch maneuver, without a lot of force and was able to successfully reduce the shoulder with good palpable clunk and resolution of the deformity clinically. Neurovascular intact distally afterwards, postreduction films show good reduction on my interpretation 2 views. No complications tolerated well. Discharge Plan Triage Chief Complaint: Upper Extremity Injury ED Provider: Mike Atwood Dx/Rx/DC Orders Clinical Impression: Fall from slip, trip, or stumble, Alcohol intoxication, Closed anterior dislocation of right shoulder Instructions: ED Dislocation: Shoulder (Reduced), ED Sling and Swathe Prescriptions: No Action metoprolol tartrate 50 MG tablet 50 mg PO QHS Cbd Gummy 1 - 2 tab PO/SL QHS benzonatate 100 mg capsule 100 mg PO TID PRN (Reason: cough) Patient Comments: TAKE 1 Capsule by mouth three times daily, as needed buspirone 10 mg tablet 10 mg PO DAILY Patient Comments: Take 1 tablet by mouth daily Primary Care Provider: Saroj Arreola Referrals: Saroj Arreola MD [Primary Care Provider] - Faraz Thayer MD [Med Staff - Active Staff] - As soon as possible (call for appt) Disposition Disposition: Home, Self Care
[2023-06-19] VITALS (9 sets, daily range): BP systolic 160–198; BP diastolic 70–100; PULSE 70–75; RESP 17–18; TEMP 36.7; O2SAT 96–100
[2023-06-19] MEDS: Ondansetron ODT 4 MG Tablet 8 MG PO (00:17)
[2023-06-19] MEDS: Morphine 4 MG/ML Syringe IM (00:18)
--- OUTSIDE RECORDS SUMMARY | 2023-06-19 00:19 | XMS RPT_ITS | CCD ---
Author Name Unknown Address [address] [place] [id number] Organization [facility] Results Test Name Value Interpretation Reference Range Facil ity Summary Purpose Family History No Family History Records Found Advance Directives No Advanced Directives Records Found Additional Source Comments INFORMATION SOURCE (unrecogn ized section and content) FOR RECORDS PERTAINING TO PATIENTS WHO ARE OR HAVE BEEN ENROLLED IN A CHEMICAL DEPENDENCY/SUBSTANCEABUSE PROGRAM, SOME INFORMATION MAY BE OMITTED. This clinical summary was aggregated from multiple sources. Caution should be exercised in using it in the provision of clinical care. This summary normalizes information from multiple sources, and as a consequence, information in this document may materially change the coding, format and clinical context of patient data. In addition, data may be omitted in some cases. CLINICAL DECISIONS SHOULD BE BASED ON THE PRIMARY CLINICAL RECORDS. [facility]. provides no warranty or guarantee of the accuracy or completeness of information in this document.
[2023-06-19] MEDS: fentaNYL 100 MCG/2 ML Ampul 50 MCG IV (00:38)
[2023-06-19] MEDS: Propofol 200 MG/20 ML Vial IV BOLUS (00:40)
--- NOTE | 2023-06-19 01:35 | RAD_ITS ---
INDICATION: postreduction -- port EXAMINATION/TECHNIQUE: X-RAY - RIGHT XR Shoulder Min 2 Views 2 VIEWS COMPARISON: Left shoulder series earlier same day. FINDINGS: BONES: Mild impaction fracture of the humeral head. JOINTS: Humeral head is situated within the glenoid fossa with interval reduction of the earlier anterior dislocation. SOFT TISSUES: Unremarkable. RAD/Shoulder min 2 Views IMPRESSION: Post reduction of the earlier anterior dislocation. Impaction fracture of the humeral head. Electronically Signed: Kaylan Khalil MD at 2:22 EST ,
== END 2023-06-19 02:01 | disposition home or self-care (01) ==
PROVIDERS: Emergency Provider Emergency Medicine; PCP Family Medicine; Visit Provider Emergency Medicine
DX: S43.014A Anterior dislocation of right humerus, initial encounter (principal); W01.10XA Fall on same level from slipping, tripping and stumbling with subsequent striking against unspecified object, initial encounter; Y93.01 Activity, walking, marching and hiking; Y92.009 Unspecified place in unspecified non-institutional (private) residence as the place of occurrence of the external cause; I10 Essential (primary) hypertension; Z79.899 Other long term (current) drug therapy; F41.9 Anxiety disorder, unspecified; Z90.710 Acquired absence of both cervix and uterus; Z96.651 Presence of right artificial knee joint
CPT/HCPCS: 23650; 73030; 96372; 96374; 96375; 99284; J7030; A4216

== ENCOUNTER 2023-08-13 15:00 | Outpatient (RCR) | payer MEDICARE, SELFPAY ==
--- NOTE | 2023-06-24 16:06 | HP.PTEVAL ---
Patient's Visit Information Visit Information Visit Information: LUCIAN SMITH is a 67 year old F referred to Physical Therapy by Dr. Faraz Thayer MD with a diagnosis of R shoulder dislocation. Date of Evaluation: 06/24/23 Physical Therapist: Tank Puente, PT, ATC Visit Plan Frequency: 2x /Week Duration: 3 Weeks Plan: R shoulder rot cuff strengthening (rot cuff), scap stab ex's, UBE, and HEP Subjective Subjective: Pt reports she fell one week ago at home. Pt reports she just moved and tripped over one of her boxes. Pt notes she knew she injured her shoulder significantly as soon as she fell. Pt went to the ER by squad where she had an x-ray which revealed she had dislocated her shoulder. Pt reports she has been wearing a sling ever since. Pt reports she then went to an orthopedic and has been referred here to physical therapy. Pt denies dislocating her shoulder in the past. 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 Pt reports she is most limited with overhead lifting at this time. Pt is R hand dominant. Pt reports her goal is to be able to drive again. Pt reports she is limited with most IADL's secondary to overhead lifting limitations. Pt denies tingling or numbness at this time. Pt reports occasional sleep difficulty secondary to pain. R shoulder pain is 0/10 at rest, 8/10 at worst Pain R shoulder: Pain Intensity (Out of 10): 0 Pain Intensity Range: 8 Objective Objective: Neuro: B UE sensation is WNL to light touch. B bicipital reflex= 2/3 Palpation: Pt is sore on the ant aspect of R shoulder. No obvious deformities present at this time. ROM: L shoulder flex= 160, abd= 175, ER= 55, IR= WNL; R shoulder flex= 40, abd= 30, ER= 30, IR= WNL MMT: L shoulder flex= 12, abd= 13, ER= 18, IR= 14 #f; R shoulder is 0 #F throughout Special testing: Unable to perform tests at this time secondary to lack of ROM Balance/Special Test Scores Quick DASH Score: 54.5450 Goals Goal 1:: Decrease R shoulder pain x 50% to aid with sleep Goal Time Frame: 4-6 Weeks Goal 2:: Increase R shoulder strength to 90% of L shoulder to aid with return to work without limitation Goal Time Frame: 4-6 Weeks Goal 3:: Increase R shoulder flex and abd ROM x 30 degrees to aid with overhead activity Goal Time Frame: 4-6 Weeks Goal 4:: I with HEP Goal Time Frame: 4-6 Weeks Rehabilitation Potential Physical Therapy Diagnosis: R shoulder pain, weakness, and limited ROM secondary to R shoulder dislocation Rehabilitation Potential: Good Anticipated Interventions Patient/Client Instruction: Educate patient on: Condition and Plan of Care For the Purpose of:: To improve self management Therapeutic Exercise to Include: Strength training, Endurance training, Flexibilty training, Active ROM and Scapular Strength/Stabilization For the Purpose of:: To decrease pain, To increase ROM and To improve muscle performance and motor function Cryotherapy (ice pack, ice massage): Yes For the Purpose of:: To decrease pain Text: Thank you for the opportunity to evaluate your patient. For Medicare and Medicare HMO plans, please review the plan of care and approve it. It will need to be FAXED BACK to us at [phone] for Medicare purposes. For Medicare only, by signing this I certify the plan of care. Please let me know if there are questions or concerns regarding this plan of care. Physician Signature: Date:
--- NOTE | 2023-08-13 15:34 | HP.PTDCSUM ---
Discharge Summary D/C summary: It has been my pleasure to treat LUCIAN SMITH referred by Dr. Faraz Thayer MD, with the diagnosis of R shoulder dislocation for a total of 8 visit(s). Discharge Date: Please see the following information for a summary of their discharge status. Subjective Subjective: I dont have any pain today Pain R shoulder: Pain Intensity (Out of 10): 0 Overall Improvement % Improvement: 85 Objective Objective/Function: R shoulder pain is 0/10 currently R shoulder ROM: flex= 130, abd= 115, ER= 50 degrees R shoulder MMT: flex= 6, abd= 12, ER= 10, IR= 11 #F Pt is I with HEP Goals Goal 1:: Decrease R shoulder pain x 50% to aid with sleep Goal Progress: Goal Met Goal 2:: Increase R shoulder strength to 90% of L shoulder to aid with return to work without limitation Goal Progress: Goal Met Goal 3:: Increase R shoulder flex and abd ROM x 30 degrees to aid with overhead activity Goal Progress: Goal Met Goal 4:: I with HEP Goal Progress: Goal Met Plan Plan: Discharge to HEP D/C Information d/c sentence: If there are questions or concerns regarding this patient's physical therapy, please feel free to call me at [phone]. Thank you for the referral of this patient. Sincerely, Tank Puente, PT, ATC Balance/Gait/Functional tests Balance/Special Test Scores Quick DASH Score: 6.8175 Improvement % Improvement: 85
== END 2023-08-13 19:00 | disposition home or self-care (01) ==
LOC: PT 15:00
PROVIDERS: PCP Family Medicine; Visit Provider Orthopaedic Surgery Sports Medicine
DX: S43.014D Anterior dislocation of right humerus, subsequent encounter (principal)
CPT/HCPCS: 97110; 97161

== ENCOUNTER 2023-08-20 11:24 | Outpatient (CLI) | payer MEDICARE, SELFPAY ==
[2023-08-20 12:06] LABS: Hematocrit 42.3 % (37-47); Mean Corp Hgb Conc 33.1 g/dL (32-36); Mean Corpuscular Hgb 32.6 pg (27.0-32.0); Mean Corpuscular Volume 98.4 fL (81-99); Mean Platelet Vol. 10.6 fl (6.2-12.0); Platelet Count 237 K/mm3 (150-450); RBC Distribution Width CV 12.6 % (11.6-14.6); RBC Distribution Width SD 45.1 fl (35.1-43.9); White Blood Count 7.3 K/mm3 (4.4-11.0)
[2023-08-20 13:19] LABS: ALB/GLOB Ratio 1.1 RATIO (0.9-2.4); AST(SGOT) 25 U/L (15-37); Alanine Aminotransfer ALT/SGPT 25 U/L (13-56); Albumin, Serum 3.6 g/dL (3.2-5.0); Alkaline Phosphatase 79 U/L (45-117); Anion Gap 10 (5-15); BUN 10 mg/dL (7-18); BUN/Creat Ratio 14.9 RATIO (10-20); Calcium,Total 8.8 mg/dL (8.5-10.1); Chloride 105 mmol/L (98-107); Creatinine, Serum 0.67 mg/dL (0.55-1.02); EST Glomerular Filtration Rate 94 mL/min (>60); Est Glom Filt Rate - Afr Amer 113 mL/min (>60); Globulin 3.4 g/dL (2.2-4.2); Glucose 85 mg/dL (74-106); Sodium Level 142 mmol/L (136-145); Uric Acid 4.4 mg/dL (2.6-6.0)
[2023-08-20 20:06] LABS: Body Fluid QC Type(s) BF1Q; CRYSTALS, BODY FLUID NO CRYSTALS SEEN; Source- Body Fluid SYNOVIAL
[2023-08-25 07:43] LABS: Pathologist Review Reviewed
[2023-09-08 10:55] LABS: Vitamin D,25 Hydroxy 23.4 ng/mL
== END 2023-08-20 23:59 | disposition home or self-care (01) ==
PROVIDERS: PCP Family Medicine; Referring Provider Podiatrist; Visit Provider Podiatrist
DX: M10.9 Gout, unspecified (principal); E55.9 Vitamin D deficiency, unspecified
CPT/HCPCS: 36415; 80053; 82306; 84550; 85027; 87070; 87075; 87205; 89060

== ENCOUNTER → 2023-08-27 | Outpatient (CLI) | payer MEDICARE, SELFPAY ==
--- NOTE | 2023-08-27 14:44 | RAD_ITS ---
STUDY: X-RAY - ACUTE ABDOMINAL SERIES REASON FOR EXAM: Female, 68 years old. Acute abdominal pain TECHNIQUE: Single view of the chest. Supine, and erect view(s) of the abdomen were obtained. 3 total views COMPARISON: None. FINDINGS: The lungs are clear and expanded. Normal size heart. Normal mediastinum and michael. Normal visualized pulmonary arteries. Normal visualized aortic arch and descending thoracic aorta. There is a non-specific bowel gas pattern. The soft tissue structures of the abdomen and pelvis are unremarkable. There is a rotatory scoliotic curvature RAD/Acute Abdomen Inc Chest IMPRESSION: No acute pulmonary, abdominal or pelvic process Electronically Signed: Grayson Smith MD at 9:51 EDT ,
--- OUTSIDE RECORDS SUMMARY | 2023-08-27 21:23 | XMS RPT_ITS | CCD ---
Author Name Unknown Address [address] [place] [address] Organization [facility] Results Test Name Value Interpretation [...] BE BASED ON THE PRIMARY CLINICAL RECORDS. [employer] [facility]. provides no warranty or guarantee of the accuracy or completeness of information in this document.
== END | disposition home or self-care (01) ==
LOC: MTRAD 14:44
PROVIDERS: PCP Family Medicine; Referring Provider Family Medicine; Visit Provider Family Medicine
DX: R10.9 Unspecified abdominal pain (principal)
CPT/HCPCS: 74022

== ENCOUNTER → 2023-09-08 | Outpatient (CLI) | payer MEDICARE, SELFPAY ==
[2023-09-08 10:59] LABS: Follicle Stimulating Hormone 48.8 mIU/mL; Luteinizing Hormone 16.5 mIU/mL
[2023-09-08 14:26] LABS: Progesterone Level < 0.21 ng/mL (See Comment)
[2023-09-13 00:06] LABS: Estrogen, Total, Serum 65 pg/mL (40-244)
== END | disposition home or self-care (01) ==
PROVIDERS: PCP Family Medicine; Referring Provider Family Medicine; Visit Provider Family Medicine
DX: N95.1 Menopausal and female climacteric states (principal)
CPT/HCPCS: 36415; 82672; 83001; 83002; 84144

== ENCOUNTER → 2023-12-11 | Outpatient (CLI) | payer MEDICARE, SELFPAY ==
--- NOTE | 2023-12-11 15:32 | RAD_ITS ---
INDICATION: pain EXAMINATION/TECHNIQUE: X-RAY - LEFT XR Wrist Min 3 Views COMPARISON: None. FINDINGS: 3 views of the left wrist. BONES: Normal anatomic alignment without evidence of fracture or subluxation. No concerning bony lesion or abnormal sclerosis to suggest lesion. JOINTS: Mild to moderate first CMC joint degenerative change. SOFT TISSUES: There appear to be extra ossicles off the ulna styloid as well as trapezium. RAD/Wrist min 3 Views IMPRESSION: No acute osseous abnormality of the left wrist. Electronically Signed: Johan Arnett MD at 21:22 EDT ,
--- NOTE | 2023-12-11 15:32 | RAD_ITS ---
INDICATION: pain EXAMINATION/TECHNIQUE: X-RAY - LEFT XR Hand Min 3 Views COMPARISON: None. FINDINGS: 3 views of the left hand. BONES: Normal anatomic alignment without evidence of fracture or subluxation. No concerning bony lesion or abnormal sclerosis to suggest lesion. JOINTS: Mild to moderate first CMC joint degenerative change. SOFT TISSUES: There appear to be extra ossicles off the ulna styloid as well as trapezium. RAD/Hand Min 3 Views IMPRESSION: No acute osseous abnormality of the left hand. Electronically Signed: Johan Arnett MD at 21:21 EDT ,
== END | disposition home or self-care (01) ==
LOC: MTRAD 15:31
PROVIDERS: PCP Family Medicine; Visit Provider Nurse Practitioner Family
DX: M79.642 Pain in left hand (principal)
CPT/HCPCS: 73110; 73130

== ENCOUNTER → 2024-03-14 | Outpatient (CLI) | payer MEDICARE, SELFPAY ==
--- NOTE | 2024-03-14 10:18 | BI_ITS ---
MAMMOGRAPHY - BILATERAL SCREENING 3-D TOMOSYNTHESIS REASON FOR EXAM: Female, 68 years old. SCREENING PERTINENT HISTORY: No significant family history. TECHNIQUE: 2-D mammograms and 3-D Tomosynthesis of the breast (s) were performed. CAD was performed. COMPARISON: 12/26/2008 FINDINGS: The breast composition is composed of scattered fibroglandular density. Scattered benign calcifications are seen. No dense spiculated masses or suspicious microcalcifications are identified. No architectural distortion is identified. There is no skin thickening or retraction. There has been no significant change since the prior study. BI/SCRN MAMM (CAD)W/ROCIO BILAT IMPRESSION: No mammographic signs of malignancy. Routine yearly mammograms recommended. ASSESSMENT CATEGORY: BIRADS Category 1: Negative. A letter regarding these results will be sent to the patient by the facility within 30 days. FOLLOW UP RECOMMENDATION: Yearly follow up mammogram recommended. (A) Approximately 10% of breast cancers are not detected by mammography. A normal mammogram should not delay biopsy of a clinically suspicious abnormality. Electronically Signed: Navjot Ferrer MD at 21:17 EDT ,
== END | disposition home or self-care (01) ==
LOC: OPBI 10:16
PROVIDERS: PCP Family Medicine; Referring Provider Family Medicine; Visit Provider Family Medicine
DX: Z12.31 Encounter for screening mammogram for malignant neoplasm of breast (principal)
CPT/HCPCS: 77063; 77067

== ENCOUNTER → 2024-11-28 | Outpatient (CLI) | payer MEDICARE, SELFPAY ==
--- NOTE | 2024-11-28 15:38 | RAD_ITS ---
PROCEDURE: L/S SPINE W BEND MIN 6 VW 11/28/2024 REASON FOR EXAM: LEG, KNEE ,HIP PAIN TECHNIQUE: L/S SPINE W BEND MIN 6 VW COMPARISON: None. FINDINGS: Grade 1 anterolisthesis of L4 on L5 secondary to facet joint arthropathy. No evidence of instability on flexion/extension images. Mild degenerative levoscoliosis apex at L3. There are diffuse spondylotic changes. Findings are demonstrated to by diffuse disc space narrowing, osteophyte formation and degenerative endplate sclerosis. There is diffuse facet joint arthropathy with secondary bilateral neural foramina narrowing. No fracture or dislocation is seen. No aggressive lytic or blastic bony lesion is noted. RAD/L/S Spine w Bend Min 6 Vw IMPRESSION: Grade 1 anterolisthesis of L4 on L5. No evidence of instability on flexion/extension images. Reading [facility]
== END | disposition home or self-care (01) ==
LOC: MTRAD 15:37
PROVIDERS: PCP Family Medicine
DX: M25.551 Pain in right hip (principal); M25.561 Pain in right knee; M25.562 Pain in left knee; M25.552 Pain in left hip
CPT/HCPCS: 72114

== ENCOUNTER → 2025-03-20 | Outpatient (CLI) | payer MEDICARE, SELFPAY ==
--- NOTE | 2025-03-20 07:58 | US_ITS ---
PROCEDURE: ABDOMEN LIMITED 03/20/2025 REASON FOR EXAM: RUQ DISCOMFORT TECHNIQUE: Procedure Code: USABDL Modality: US Procedure: ABDOMEN LIMITED COMPARISON: None FINDINGS: Liver: Diffusely echogenic suggesting fatty infiltration. The liver measures 15.2 cm. Gallbladder: No stones sludge wall thickening or tenderness. Common bile duct: Normal measuring 3 mm.. Pancreas: Normal Other: Visualized portions of the right kidney are unremarkable. No right upper quadrant ascites. US/Abdomen Limited IMPRESSION: Fatty infiltration of the liver. Reading Location: [id number]
== END | disposition home or self-care (01) ==
PROVIDERS: PCP Family Medicine; Referring Provider Family Medicine; Visit Provider Family Medicine
DX: R10.11 Right upper quadrant pain (principal)
CPT/HCPCS: 76705

== ENCOUNTER → 2025-04-05 | Outpatient (CLI) | payer MEDICARE, SELFPAY ==
[2025-04-05 10:31] LABS: Hematocrit 44.7 % (37-47); Hemoglobin 15.1 g/dL (12.0-15.0); Immature Granulocytes Count 0.010 X10^3/uL (0.0-0.0); Mean Corp Hgb Conc 33.8 g/dL (32-36); Mean Corpuscular Volume 96.3 fL (81-99); Mean Platelet Vol. 11.7 fl (6.2-12.0); NRBC Flagged by Analyzer 0 % (0-5); Platelet Count 266 K/mm3 (150-450); RBC Distribution Width CV 11.7 % (11.6-14.6); RBC Distribution Width SD 41.1 fl (35.1-43.9); Red Blood Count 4.64 M/mm3 (4.2-5.4); White Blood Count 4.0 K/mm3 (4.4-11.0)
[2025-04-05 11:03] LABS: AST(SGOT) 26 U/L (<=31); Alanine Aminotransfer ALT/SGPT 28 U/L (<=34); Albumin, Serum 4.2 g/dL (3.4-4.8); Alkaline Phosphatase 69 U/L (35-104); Anion Gap 11 (5-15); BUN 11 mg/dL (4-19); BUN/Creat Ratio 16.7 RATIO (10-20); Calcium,Total 9.3 mg/dL (7.6-11.0); Carbon Dioxide 26.8 mmol/L (21.0-32.0); Chloride 104 mmol/L (98-108); Cholesterol 239 mg/dL (<=200); Globulin 2.7 g/dL (2.2-4.2); Glucose 89 mg/dL (70-99); Low Density Lipoprotein Calc. 137 mg/dL; Potassium 3.9 mmol/L (3.3-5.1); Triglycerides 80 mg/dL; Very Low Density Lipoprotein 16 mg/dL (5-40); Vitamin D,25 Hydroxy 24.7 ng/mL (30-100); cholesterol:hdl ratio screen 2.71
== END | disposition home or self-care (01) ==
LOC: MFPLAB 08:33
PROVIDERS: PCP Family Medicine; Visit Provider Family Medicine
DX: R53.83 Other fatigue (principal); I10 Essential (primary) hypertension
CPT/HCPCS: 36415; 80053; 80061; 82306; 84443; 85025